=== PATIENT | male | born 1960 | race Caucasian/White ===

== ENCOUNTER 2019-11-27 11:00 | Observation (INO) | payer OTHER, SELFPAY ==
[2019-11-27] VITALS (8 sets, daily range): BP systolic 113–154; BP diastolic 72–102; PULSE 93–125; RESP 15–29; TEMP 36.4–36.6; O2SAT 96–98; BMI 40.4
--- NOTE | 2019-11-27 11:12 | DI.RAD.S_ITS ---
PROCEDURE: XR CHEST 1V INDICATIONS: chest pain TECHNIQUE: One view of the chest was acquired. COMPARISON: None. FINDINGS: Surgical changes and devices: None. Lungs and pleura: Lungs are clear. No pleural effusions or pneumothorax. Mediastinum: The cardiac contours are mildly enlarged. The aorta demonstrates calcification and tortuosity. Bones and chest wall: Age-appropriate bony degenerative changes are seen. No suspicious bony lesions. Overlying soft tissues appear unremarkable. IMPRESSION: Mild cardiomegaly. Clear lungs. Dictated by: Daniel Lundberg M.D. on 11/27/2019 at 10:30 Approved by: Daniel Lundberg M.D. on 11/27/2019 at 10:31
[2019-11-27 11:18] LABS: Add Manual Diff / Slide Review NO; Basophils Absolute Auto 0 /uL (0-100); Basophils Percent Auto 0.7 % (0-2); Eosinophils Absolute Auto 0 /uL (0-450); Eosinophils Percent Auto 0.3 % (2-4); Hematocrit 46.9 % (41-53); Hemoglobin 16.3 g/dL (13.5-17.5); Lymphocytes Absolute Auto 1000 /uL (1100-4500); Lymphocytes Percent Auto 14.6 % (25-40); Mean Corpuscular HGB Conc 34.8 % (30-36); Mean Corpuscular Hemoglobin 30.6 PG (26-34); Mean Corpuscular Volume 87.9 fL (80-100); Monocytes Absolute Auto 300 /uL (0-900); Monocytes Percent Auto 4.3 % (3-14); Neutrophils Absolute Auto 5300 /uL (1500-7000); Neutrophils Percent Auto 80.1 % (50-75); Platelet Count 155 X10^3/uL (150-400); Red Blood Cell Count 5.33 X10^6/uL (4.5-5.9); Red Cell Distribution Width 13.9 % (11.6-14.8); White Blood Cell Count 6.6 X10^3/uL (4.5-11.0)
[2019-11-27 11:25] LABS: INR 1.1 (0.9-1.3); Prothrombin Time 12.4 SECONDS (10.1-12.7)
--- NOTE | 2019-11-27 11:27 | PC.NURSE ---
pt c/o onset of dizziness, like room is about to spin. states had an episode similar to that on [place] but was not seen for hit. pt denies chest pain, or feelings of irregular heart beat. pt has no history of afib. today new onset afib.
[2019-11-27 11:28] LABS: PTT Partial Thromboplastin Tim 34 SECONDS (26.4-36.2)
[2019-11-27 11:31] LABS: Alanine Aminotransferase 25 IU/L (<50); Albumin 4.8 g/dL (3.5-5.0); Albumin Globulin Ratio 1.3 (1.0-2.8); Alkaline Phosphatase 74 U/L (38-126); Aspartate Aminotransferase 31 IU/L (17-59); Blood Urea Nitrogen 24 mg/dL (9-20); Calcium 9.5 mg/dL (8.4-10.2); Carbon Dioxide 25 mmol/L (22-32); Chloride 104 mmol/L (98-107); Creatine Kinase 123 U/L (55-170); Estimated Glomerular Filt Rate > 60.0 mL/min (>60); Globulin 3.6 g/dL (1.7-4.1); Glucose 144 mg/dL (80-110); HEMOLYSIS < 15 (0-50); Lipase 75 U/L (23-300); Potassium 4.5 mmol/L (3.4-5.1); Sodium 139 mmol/L (137-145); Total Protein 8.4 g/dL (6.3-8.2)
[2019-11-27 11:42] LABS: Troponin I < 0.012 ng/mL (0.01-0.034)
[2019-11-27 11:46] LABS: CKMB % Relative Index 1.1 % (1.5-5.0); Creatine Kinase MB 1.33 ng/mL (<2.37)
--- NOTE | 2019-11-27 11:57 | ED_ITS ---
HPI - Chest Pain General Chief Complaint: Chest Pain Stated Complaint: needs his heart checked out Time Seen by Provider: 11/27/19 11:50 Source: patient Mode of arrival: Ambulatory Limitations: no limitations Related Data Home Medications Medication Instructions Recorded Confirmed Respironics Dreamstation CPAP #1 ea 04/10/19 04/10/19 Allergies Allergy/AdvReac Type Severity Reaction Status Date / Time No Known Drug Allergies Allergy Verified 11/27/19 11:10 Patient History Social History marital status: details: [place] lives independently: Yes caregiver/support person: No housing: house Smoking Status: Unknown if ever smoked Smoking Status: Unknown if ever smoked alcohol intake frequency: holidays/special occasions only Substance Use Type: does not use Exam Initial Vital Signs Initial Vital Signs: Vital Signs Temperature 97.5 F L 11/27/19 11:05 Pulse Rate 123 H 11/27/19 11:05 Respiratory Rate 23 11/27/19 11:05 Blood Pressure 128/102 H 11/27/19 11:05 Pulse Oximetry 98 11/27/19 11:05 Course Orders Ordered: ED Orders 11/27/19 11:10 Complete Blood Count AUTO DIFF Stat Comprehensive Metabolic Panel Stat Lipase Stat Partial Thromboplastin Time Stat Prothrombin Time INR Stat Troponin & CK Cardiac Panel Stat 11/27/19 11:12 XR chest 1V Stat EKG-12 Lead Stat Vital Signs Vital signs: Vital Signs - 8 hr 11/27/19 11:05 11/27/19 11:30 Temperature 97.5 F L Pulse Rate 123 H 125 H Respiratory Rate 23 15 Blood Pressure 128/102 H Blood Pressure [Left Arm] 120/85 Pulse Oximetry 98 96 MDM - Chest Pain Lab Data Result diagrams: 11/27/19 11:10 11/27/19 11:10 Labs: Lab Results 11/27/19 11/27/19 11/27/19 Range/Units 11:10 11:10 11:10 WBC 6.6 (4.5-11.0) X10^3/uL RBC 5.33 (4.5-5.9) X10^6/uL Hgb 16.3 (13.5-17.5) g/dL Hct 46.9 (41-53) % MCV 87.9 (80-100) fL MCH 30.6 (26-34) PG MCHC 34.8 (30-36) % RDW 13.9 (11.6-14.8) % Plt Count 155 (150-400) X10^3/uL Neut % (Auto) 80.1 H (50-75) % Lymph % (Auto) 14.6 L (25-40) % [place] % (Auto) 4.3 (3-14) % Eos % (Auto) 0.3 L (2-4) % Baso % (Auto) 0.7 (0-2) % Neut # (Auto) 5300 (5236-9960) /uL Lymph # (Auto) 1000 L (5625-1756) /uL [place] # (Auto) 300 (0-900) /uL Eos # (Auto) 0 (0-450) /uL Baso # (Auto) 0 (0-100) /uL PT 12.4 (10.1-12.7) SECONDS INR 1.1 (0.9-1.3) APTT 34 (26.4-36.2) SECONDS Sodium 139 (137-145) mmol/L Potassium 4.5 (3.4-5.1) mmol/L Chloride 104 (98-107) mmol/L Carbon Dioxide 25 (22-32) mmol/L BUN 24 H (9-20) mg/dL Creatinine 0.80 (0.66-1.25) mg/dL Estimated GFR > 60.0 (>60) mL/min BUN/Creatinine Ratio 30.0 H (6-22) Glucose 144 H (80-110) mg/dL Calcium 9.5 (8.4-10.2) mg/dL Total Bilirubin 1.0 (0.2-1.3) mg/dL AST 31 (17-59) IU/L ALT 25 (<50) IU/L Alkaline Phosphatase 74 (38-126) U/L Total Creatine Kinase 123 (55-170) U/L CK-MB (CK-2) 1.33 (<2.37) ng/mL CK-MB (CK-2) Rel Index 1.1 L (1.5-5.0) % Troponin I < 0.012 (0.01-0.034) ng/mL Total Protein 8.4 H (6.3-8.2) g/dL Albumin 4.8 (3.5-5.0) g/dL Globulin 3.6 (1.7-4.1) g/dL Albumin/Globulin Ratio 1.3 (1.0-2.8) Lipase 75 (23-300) U/L ECG Data Attestation: I personally reviewed and interpreted this ECG as follows: Interpretation: The patient's EKG obtained on November 27 at 11:12 a.m.: 34 reveals atrial fibrillation with a rapid ventricular response ventricular rate is 118. QRS is 111 milliseconds duration. QTC is 421 milliseconds. [place] is normal. The patient has a Q-wave in lead III and V1. T-waves are inverted in lead III and V1. T-waves are flat in V4 V5 and V6. There are no other acute diagnostic ST segment changes. Discharge Plan Departure Prescriptions: No Action (DME) Respironics Dreamstation CPAP Qty: 1 RF: 0
[2019-11-27] MEDS: dilTIAZem 5 MG/ML SDV 10 MG IV (12:13)
[2019-11-27] MEDS: HEPARIN 5,000 UNIT/ML VIAL 5000 UNIT IV (12:15)
--- NOTE | 2019-11-27 13:54 | DI.ECHO.S_ITS ---
[place] +---------+ [facility] +---------+ : : [address] : : : : [id number] : : : : Phone: [phone]+ Echocardiogram Report + + :Name: DEQUAN ROBLERO Study Date: 11/28/2019 Height: 74 in : :[facility] Weight: 315 lb : : Gender: Male BSA: 2.6 m2 : :: 1960 Age: 59 yrs BP: 131/83 mmHg: :Reason For Study: AFIB RVR : : Performed By: Raymond Chau : :Referring: LC SPENCER : + + Interpretation Summary The left ventricle is mildly dilated. The ejection fraction is estimated to be 35-40%. Inferior and apical hyokinesis in the setting of global hypokinesis Right ventricular systolic function is mild to moderately reduced. Both atria are moderately dilated. The right ventricular systolic pressure is estimated to be at least 36 mmHg based on an estimated right atrial pressure of 15 mm Hg. The ascending aorta is mildly enlarged. Procedure: A two-dimensional transthoracic echocardiogram with color flow and Doppler was performed. The study quality was technically difficult. There is no prior echocardiogram noted for this patient. A contrast injection of Definity was performed to improve assessment of LV function. The patient was in atrial fibrillation with rapid ventricular response during the exam with a heart rate exceeding 100 bpm. The patient had a heart rate of 93-136 beats per minute. Left Ventricle: There is normal left ventricular wall thickness. The left ventricle is mildly dilated. The ejection fraction is estimated to be 35-40%. There is moderate global hypokinesis of the left ventricle. Inferior and apical hyokinesis in the setting of global hypokinesis. Right Ventricle: The right ventricle is normal size. Right ventricular systolic function is mild to moderately reduced. Atria: Both atria are moderately dilated. The interatrial septum is intact with no evidence for an atrial septal defect. Mitral Valve: The mitral valve is normal in structure and function. There is trace mitral regurgitation. Aortic Valve: The aortic valve is trileaflet. The aortic valve opens well. There is trace aortic regurgitation. Tricuspid Valve: The tricuspid valve is normal in structure and function. There is trace tricuspid regurgitation. The right ventricular systolic pressure is estimated to be at least 36 mmHg based on an estimated right atrial pressure of 15 mm Hg. Pulmonic Valve: The pulmonic valve is not well visualized. There is trace pulmonic regurgitation. Great Vessels: The aortic root is normal size. The ascending aorta is mildly enlarged. The pulmonary artery is normal size. The IVC is dilated (diameter is greater than 2.1 cm) and it collapses less than 50% with a sniff. This suggests a high right atrial pressure of 15 mm Hg. Pericardium/ Pleura There is no pericardial effusion. There is no pleural effusion. MMode/2D Measurements & Calculations LVIDd: 6.0 cm LVOT diam: 2.5 cm LVIDs: 4.4 cm Ao root diam: 3.2 cm FS: 26.6 % Aortic Jxn: 2.5 cm EPSS: 2.6 cm asc Aorta Diam: 4.0 cm IVSd: 1.0 cm Ao Arch Diam (Prox Trans): 2.9 cm LVPWd: 1.3 cm LV littlejohn. diameter/BSA (cm/m^2): 2.3 LV sys. diameter/BSA (cm/m^2): 1.7 LA dimension: 4.7 cm RA long axis: 6.1 cm LA A2 area: 29.8 cm2 RA area: 27.6 cm2 LA A4 area: 33.0 cm2 RA vol: 106.2 ml LA length (vol): 7.2 cm RA : 40.3 ml/m2 LA vol: 116.1 ml IVC diam: 3.2 cm LA vol index: 44.1 ml/m2 RVD1 (basal): 4.2 cm RVD2 (mid): 4.4 cm Doppler Measurements & Calculations Ao V2 max: 86.9 cm/sec LVOT Max Miah: 70.7 cm/sec Ao V2 mean: 70.0 cm/sec LV V1 max P.0 mmHg Ao max P.1 mmHg LV V1 VTI: 12.5 cm Ao mean P.1 mmHg CAMILA(I,D): 4.8 cm2 Ao V2 VTI: 12.8 cm CAMILA(V,D): 4.0 cm2 sev ratio: 0.98 CAMILA indexed to BSA (cm^2/m^2): 1.8 MV E max miah: 74.7 cm/sec TR max miah: 229.4 cm/sec MV A max miah: 1.4 cm/sec TR max P.1 mmHg MV E/A: 54.6 PA V2 max: 67.5 cm/sec Med Peak E' Miah: 4.3 cm/sec PA V2 mean: 54.3 cm/sec E/E' med: 17.2 PA mean P.2 mmHg Lat Peak E' Miah: 7.5 cm/sec PA pr(Accel): 34.1 mmHg E/E' lat: 9.9 PA Accel Time: 0.09 sec E/e' average: 13.6 MV dec time: 0.09 sec SV(LVOT): 61.0 ml Reading Physician:03:29 PM
--- NOTE | 2019-11-27 14:13 | PC.NURSE ---
PT ARRIVED TO ROOM 229 VIA STRETCHER FROM ED, ABLE TO WALK TO BED UNASSISTED WITH GOOD BALANCE- MONITOR SHOWS AFIB RVR RATE 121 BPM, SLIGHT JVD NOTED AND SLIGHT PERIPHERAL EDEMA- PT DENIES PAIN AND HAS CLEAR LUNGS BILATERALLY- SIGNIFICANT OTHER TO BRING HOME CPAP
--- NOTE | 2019-11-27 15:52 | P.HP_ITS ---
History of Present Illness History of Present Illness Date Patient Seen: 11/27/19 Time Patient Seen: 13:40 Chief complaint: needs his heart checked out Narrative: Duke Magallon is a 59-year-old male with past medical history of ROBIN, who presented after an episode of dizziness this morning. Patient states that this morning he woke and fell profoundly dizzy, with a room spinning sensation lasting for a couple of minutes. This sensation was worse when sitting upright, and then did not improve while lying down. He also has had a posterior, nonradiating, mild headache since this morning. He denies any other symptoms including chest pain, vision changes, slurred speech, weakness, palpitations, nausea, vomiting, diaphoresis, weight gain or weight loss, ortho pnea, or lower extremity edema. He also reports a similar episode at [place], however that episode was followed by intense diaphoresis. He was not evaluated after that. He went to urgent care today and was sent in for evaluation. In the emergency room, he presented in AFib with RVR with a pulse of 125. He was mildly hypertensive, and other vital signs were unremarkable. He was given 10 mg of IV diltiazem with improvement in the rate. He was given IV heparin 5000 units x1 dose. Chest x-ray showed cardiomegaly, without evidence of pulmonary edema. EKG showing AFib with RVR at a rate of 118, there is inferior T-wave inversions and some Q-waves. Otherwise no ST or T changes. Patient was admitted to Medicine under observation status for AFib with RVR, this is a new diagnosis. Patient History Family & Social History Social History: lives independently Yes caregiver/support person No Safety & Behavioral: Feels Safe in Current Yes Environment Been Physically Hurt or No Threatened By a Person Suicidal Ideation Description None Suicide Plan Description No Plan Tobacco & Substance use: Smoking Status Never smoker alcohol intake current alcohol intake frequency a few times a week Substance Use Type does not use Meds Home Medications and Allergies Home Medications Medication Instructions Recorded Confirmed Type Respironics Dreamstation CPAP #1 ea 04/10/19 11/27/19 History Allergies Allergy/AdvReac Type Severity Reaction Status Date / Time No Known Drug Allergies Allergy Verified 11/27/19 11:10 Review of Systems Review of Systems Narrative: All other systems reviewed with the patient and are negative unless otherwise stated. Exam Vital Signs (past 8 hours): - 11/27/19 11:05 11/27/19 11:30 11/27/19 12:13 Temperature 97.5 F L Pulse Rate 123 H 125 H 121 H Respiratory Rate 23 15 Blood Pressure 128/102 H 126/94 H Blood Pressure [Left Arm] 120/85 Pulse Oximetry 98 96 11/27/19 13:04 11/27/19 14:12 11/27/19 15:35 Temperature 97.9 F 97.8 F Pulse Rate 93 H 119 H 120 H Respiratory Rate 18 27 H 17 Blood Pressure 133/93 H 154/94 H Blood Pressure [Left Arm] 122/84 Pulse Oximetry 97 98 97 Oxygen Delivery Method Room Air Oxygen Flow Rate 0 Narrative Exam Narrative: GENERAL APPEARANCE: Well developed, well nourished, in no acute distress. Sitting upright in hospital bed. SKIN: Inspection of the skin reveals no rashes, ulcerations or petechiae. HEENT: Anicteric sclera, moist mucous membranes, EOMI. NECK: Supple and symmetric. There was no thyroid enlargement, and no tenderness, or masses were felt. There is mild JVD. CHEST: Normal AP diameter and normal contour without any kyphoscoliosis. LUNGS: Auscultation of the lungs revealed no wheezes, rhonchi, or rales. CARDIOVASCULAR: There was a regular rate and rhythm without any murmurs, gallops, rubs. Peripheral pulses were 2+ and symmetric. ABDOMEN: Soft and nontender with normal bowel sounds. No ascites was noted. MUSCULOSKELETAL: There was no tenderness or effusions noted. Muscle strength and tone were normal. EXTREMITIES: No cyanosis, clubbing. There is trace lower extremity edema. NEUROLOGIC: Alert and oriented x 3. Normal affect. Strength is +5/5 in the Upper Extremities and Lower Extremities Bilaterally. Sensation to touch was normal. Objective ECG Impression: AFib with RVR, rate 116, inferior Q-waves with flipped T-waves. No evidence of active ischemia. Labs Result Diagrams: 11/27/19 11:10 11/27/19 11:10 Labs: Laboratory Results - last 24 hr 11/27/19 11/27/19 11/27/19 11:10 11:10 11:10 WBC 6.6 RBC 5.33 Hgb 16.3 Hct 46.9 MCV 87.9 MCH 30.6 MCHC 34.8 RDW 13.9 Plt Count 155 Neut % (Auto) 80.1 H Lymph % (Auto) 14.6 L [place] % (Auto) 4.3 Eos % (Auto) 0.3 L Baso % (Auto) 0.7 Neut # (Auto) 5300 Lymph # (Auto) 1000 L [place] # (Auto) 300 Eos # (Auto) 0 Baso # (Auto) 0 PT 12.4 INR 1.1 APTT 34 Sodium 139 Potassium 4.5 Chloride 104 Carbon Dioxide 25 BUN 24 H Creatinine 0.80 Estimated GFR > 60.0 BUN/Creatinine Ratio 30.0 H Glucose 144 H Calcium 9.5 Total Bilirubin 1.0 AST 31 ALT 25 Alkaline Phosphatase 74 Total Creatine Kinase 123 CK-MB (CK-2) 1.33 CK-MB (CK-2) Rel Index 1.1 L Troponin I < 0.012 Total Protein 8.4 H Albumin 4.8 Globulin 3.6 Albumin/Globulin Ratio 1.3 Lipase 75 Nasal Screen MRSA (PCR) 11/27/19 13:20 WBC RBC Hgb Hct MCV MCH MCHC RDW Plt Count Neut % (Auto) Lymph % (Auto) [place] % (Auto) Eos % (Auto) Baso % (Auto) Neut # (Auto) Lymph # (Auto) [place] # (Auto) Eos # (Auto) Baso # (Auto) PT INR APTT Sodium Potassium Chloride Carbon Dioxide BUN Creatinine Estimated GFR BUN/Creatinine Ratio Glucose Calcium Total Bilirubin AST ALT Alkaline Phosphatase Total Creatine Kinase CK-MB (CK-2) CK-MB (CK-2) Rel Index Troponin I Total Protein Albumin Globulin Albumin/Globulin Ratio Lipase Nasal Screen MRSA (PCR) Negative for mrsa Assessment & Plan Assessment & Plan narrative: Duke Magallon is a 59-year-old male with past medical history of ROBIN, who presented after an episode of dizziness this morning and was admitted after EKG showed new diagnosis of AFib with RVR. He is currently admitted under observation status. 1. Atrial fibrillation with rapid ventricular response, new diagnosis, present on admission, active -chest x-ray showing cardiomegaly. Initial troponin negative but pending repeat. He has minimal JVD and trace peripheral edema on exam. Could represent new diagnosis of heart failure, but he has no other symptoms including dyspnea on exertion. It is unclear if his AFib is giving him this dizziness. Given his EKG there is evidence of a prior inferior infarct, however patient denies previous heart history. There is no evidence of active ischemia. This also may be secondary to his chronic ROBIN. -risk stratify with A1c, TSH, lipid panel -will obtain TTE. -continue to monitor electrolytes, initial lab values unremarkable. Continue to follow potassium and magnesium. -depending on echocardiogram results he may need further cardiology consultation. -will diurese with 20 mg of IV Lasix given exam to see if there's improvement. -patient was started on apixaban, CHADS-VASc is technically 0 at this time but given no prior evaluation he is likely to have risk factors which are being evaluated as noted above. He further could have an atrial thrombus given unknown initiation of afib and elected to start AC now. He is s/p 5000 U of IV heparin in the ED. -attempt to rate control with oral metoprolol, he did respond to IV diltiazem, however would ideally have TTE prior to starting this medication as noted above. 2. Dizziness, recurrent, not present on admission -patient is currently asymptomatic. He did not show evidence on exam of BPPV. It is possible this dizziness is due to his AFib with rapid heart rate, however this is unclear. Differential includes vasovagal, however unlikely given story, or potentially carotid sinus syndrome however he did not show evidence of this on exam either. -continue to treat AFib as above, and recheck exam if symptoms return. 3. Obstructive sleep apnea, chronic, present on admission -continue home CPAP therapy 4. Obesity, chronic, BMI 40.4 - pending further evaluation as noted above - consider dietary consultation. - Heart healthy diet. Dispo: Admitted under observation status given his stay is not likely to exceed 2 midnights DVT: on apixaban Scores CHADS-VASc Congestive heart failure: no Hypertension: no Age 75 years or older: no Diabetes mellitus: no Stroke, TIA, or TE: no Vascular disease: no Age 65 to 74 years: no Sex category (female): Male CHADS-VASc Score: 0 Quality VTE Deep Vein Thrombosis/Pulmonary Embolism Present on Admission: No
[2019-11-27] MEDS: APIXABAN 5 MG TABLET PO ×2 (16:35→21:01)
[2019-11-27] MEDS: FUROSEMIDE 20 MG/2 ML VIAL IV (16:35)
[2019-11-27] MEDS: METOPROLOL IR 25 MG TABLET 12.5 MG PO ×2 (16:35→21:02)
[2019-11-27] MEDS: ACETAMINOPHEN 325 MG TABLET 650 MG PO (16:41)
[2019-11-27 17:55] LABS: Troponin I < 0.012 ng/mL (0.01-0.034)
--- NOTE | 2019-11-27 20:48 | ED_ITS ---
HPI - Chest Pain General Chief Complaint: Chest Pain Stated Complaint: needs his heart checked out Time Seen by Provider: 11/27/19 11:50 Source: patient Mode of arrival: Ambulatory Limitations: no limitations History of Present Illness HPI narrative: This is a re-dictation of this patient's chart. I placed a computer button and the previous dictation was he raced. The patient is a 59-year-old male who was seen in a clinic and sent to the emergency department by the nurse practitioner Connor. In the clinic the patient had a heart rate that was running 120-130 and was irregular irregular. The patient was co mplaining of dizziness and balance being off. He denied any chest pain. He had a mild headache. He states that he felt as though he was spinning intermittently. He admits to a heart disease having had a myocardial infarction and stroke in the past. He has had intermittent sweats. He has a mild headache. He has had no nasal drainage sinus congestion sore throat or earache. He denies any tinnitus ear plugging or loss of hearing. He denies any chest pain palpitations or knowledge that he feels his heart racing. He has had no shortness of breath cough or difficulty in breathing. He denies any abdominal pain nausea vomiting diarrhea change in bowel habits melena or hematochezia. And he has had no urinary symptoms. The patient states that he has no primary care physician and is seen in the walk-in clinic. Related Data Home Medications Medication Instructions Recorded Confirmed Respironics Dreamstation CPAP #1 [id number] 04/10/19 11/27/19 Allergies Allergy/AdvReac Type Severity Reaction Status Date / Time No Known Drug Allergies Allergy Verified 11/27/19 11:10 Review of Systems Review of Systems Narrative: All review of systems were negative except for those mentioned in the history of present illness. Patient History Social History marital status: details: lives in [place] household members: significant other lives independently: Yes caregiver/support person: No housing: house Smoking Status: Never smoker alcohol intake: current Smoking Status: Never smoker alcohol intake frequency: a few times a week Substance Use Type: does not use Exam Narrative Exam Narrative: PHYSICAL EXAM: CONSTITUTIONAL: Awake, Alert, Oriented, Coherent, Cooperative in NAD. Does not appear toxic or ill. HEAD: AT/NC EENT: PERRL, FROM of eyes, no discharge, no nystagmus No drainage from the ears, Tympanic membranes intact bilaterally, clear EAC No epistaxis or nasal drainage Oral mucosa is moist and pink, posterior pharynx is without erythema or exudate. NECK: Supple, no obvious JVD, Trachea is midline without stridor, no palpable LN or masses. SPINE: No gross deformity, no palpable tenderness of the cervical, thoracic, lumbar or sacral spine. No CVA tenderness. THORAX: No deformity, retractions, chest wall tenderness, subcutaneous air or crepitice. LUNGS: Clear with symmetrical breath sounds without respiratory distress HEART: The patient's heart tones reveal a variable S1-S2 with an irregular irregular rhythm with tachycardia of bowel without murmur consistent with atrial fibrillation. ABDOMEN: Soft, non-tender, normal bowel sounds without guarding, rebound, rigidity or palpable mass . EXTREMITIES: No edema, cyanosis, deformity or tenderness. SKIN: No rash, bruising, petechiae or purpura. NEURO: Awake, alert, oriented, conversive, cranial nerves II-XII are symmetrical and normal, moves all 4 extremities and is ambulatory Initial Vital Signs Initial Vital Signs: Vital Signs Temperature 97.5 F L 11/27/19 11:05 Pulse Rate 123 H 11/27/19 11:05 Respiratory Rate 23 11/27/19 11:05 Blood Pressure 128/102 H 11/27/19 11:05 Pulse Oximetry 98 11/27/19 11:05 Course Course Course Narrative: The patient was administered 5000 units of heparin IV push followed by 10 mg of Cardizem IV push. A Cardizem bolus wide was utilized to slow the heart rate down less than 100 with the possibility that it may have converted him into normal sinus rhythm. If converted into a normal sinus rhythm he would be at risk of having a stroke for which the patient was administered heparin bolus. The hospitalist was called and the patient was admitted observation status on telemetry. Orders Ordered: Acetaminophen (Tylenol) 650 mg PO Q6HR PRN PRN Reason: Fever/Mild Pain (1-3) Last Admin: 11/27/19 16:41 Dose: 650 mg Documented by: VERNON Apixaban (Eliquis) 5 mg PO BID [facility] Last Admin: 11/28/19 20:35 Dose: 5 mg Documented by: Admin: 11/28/19 09:03 Dose: 5 mg Documented by: Admin: 11/27/19 21:01 Dose: 5 mg Documented by: Admin: 11/27/19 16:35 Dose: 5 mg Documented by: VERNON Diltiazem HCl (Cardizem) 10 mg IV Q2HR PRN PRN Reason: Heart Rate- High Levothyroxine Sodium (Synthroid) 25 mcg PO 0600 [facility] Last Admin: 11/28/19 09:06 Dose: 25 mcg Documented by: ANDREIA Metoprolol Succinate (Toprol Xl) 50 mg PO BID [facility] Last Admin: 11/28/19 20:25 Dose: 50 mg Documented by: RICK Discontinued Medications Diltiazem HCl (Cardizem) 10 mg IV NOW ONE Stop: 11/27/19 12:04 Last Admin: 11/27/19 12:13 Dose: 10 mg Documented by: GUNNAR Furosemide (Lasix) 20 mg IV NOW ONE Stop: 11/27/19 15:56 Last Admin: 11/27/19 16:35 Dose: 20 mg Documented by: VERNON Heparin Sodium (Porcine) (Heparin) 5,000 unit IV NOW ONE Stop: 11/27/19 12:05 Last Admin: 11/27/19 12:15 Dose: 5,000 unit Documented by: GUNNAR Metoprolol Tartrate (Lopressor) 12.5 mg PO BID [facility] Last Admin: 11/27/19 21:02 Dose: 12.5 mg Documented by: Admin: 11/27/19 16:35 Dose: 12.5 mg Documented by: VERNON Metoprolol Tartrate (Lopressor) 25 mg PO BID [facility] Last Admin: 11/28/19 09:04 Dose: 25 mg Documented by: ANDREIA Metoprolol Tartrate (Lopressor) 50 mg PO BID [facility] MDM - Chest Pain Lab Data Attestation: I reviewed the patient's lab results. Result diagrams: 11/28/19 04:30 11/28/19 04:30 Labs: Lab Results 11/27/19 11/27/19 11/27/19 Range/Units 11:10 11:10 11:10 WBC 6.6 (4.5-11.0) X10^3/uL RBC 5.33 (4.5-5.9) X10^6/uL Hgb 16.3 (13.5-17.5) g/dL Hct 46.9 (41-53) % MCV 87.9 (80-100) fL MCH 30.6 (26-34) PG MCHC 34.8 (30-36) % RDW 13.9 (11.6-14.8) % Plt Count 155 (150-400) X10^3/uL Neut % (Auto) 80.1 H (50-75) % Lymph % (Auto) 14.6 L (25-40) % Craig % (Auto) 4.3 (3-14) % Eos % (Auto) 0.3 L (2-4) % Baso % (Auto) 0.7 (0-2) % Neut # (Auto) 5300 (1675-2231) /uL Lymph # (Auto) 1000 L (1550-8399) /uL Craig # (Auto) 300 (0-900) /uL Eos # (Auto) 0 (0-450) /uL Baso # (Auto) 0 (0-100) /uL PT 12.4 (10.1-12.7) SECONDS INR 1.1 (0.9-1.3) APTT 34 (26.4-36.2) SECONDS Sodium 139 (137-145) mmol/L Potassium 4.5 (3.4-5.1) mmol/L Chloride 104 (98-107) mmol/L Carbon Dioxide 25 (22-32) mmol/L BUN 24 H (9-20) mg/dL Creatinine 0.80 (0.66-1.25) mg/dL Estimated GFR > 60.0 (>60) mL/min BUN/Creatinine Ratio 30.0 H (6-22) Glucose 144 H (80-110) mg/dL Calcium 9.5 (8.4-10.2) mg/dL Total Bilirubin 1.0 (0.2-1.3) mg/dL AST 31 (17-59) IU/L ALT 25 (<50) IU/L Alkaline Phosphatase 74 (38-126) U/L Total Creatine Kinase 123 (55-170) U/L CK-MB (CK-2) 1.33 (<2.37) ng/mL CK-MB (CK-2) Rel Index 1.1 L (1.5-5.0) % Troponin I < 0.012 (0.01-0.034) ng/mL Total Protein 8.4 H (6.3-8.2) g/dL Albumin 4.8 (3.5-5.0) g/dL Globulin 3.6 (1.7-4.1) g/dL Albumin/Globulin Ratio 1.3 (1.0-2.8) Lipase 75 (23-300) U/L ECG Data Attestation: I personally reviewed and interpreted this ECG as follows: Interpretation: The patient's EKG obtained on November 27 at 11:12 a.m.: 3 4 revealed atrial fibrillation with a rapid ventricular rate. The patient's ventricular rate was 118. QRS was prolonged at to 111 milliseconds. QTC was normal at 421 milliseconds axis was normal at 27. The patient has a Q-wave in lead II 3 and in V1. T-waves were inverted in lead III and V1. There were no other acute diagnostic ST segment changes. There was no ST indications of ischemia. MDM Narrative Medical decision making narrative: Patient was primarily admitted to the hospital for control of the ventricular rate and consideration of converting his atrial fibrillation. It is unknown how long was in atrial fibrillation. Discharge Plan Departure Patient Disposition: Admitted as Observation Clinical Impression: Atrial fibrillation with RVR, Vertigo Discharge Date/Time: 11/27/19 13:18 Admit Date/Time: 11/27/19 12:46 Admit Provider: Jabari Mcghee
--- NOTE | 2019-11-27 22:30 | PC.NURSE ---
No complaints of chest pain or shortness of breath. HR sustained in 130's while family was in room but came down to 110-120 when at rest. Ambulates to bathroom. Room air. Saline locked IV. Mild headache relieved by Tylenol. CPAP brought from home by , at bedside when patient is ready to go to sleep. Call light within reach.
[2019-11-28] VITALS (8 sets, daily range): BP systolic 107–153; BP diastolic 73–93; PULSE 89–116; RESP 18–31; TEMP 36.1–37.1; O2SAT 96–98
[2019-11-28 04:41] LABS: Add Manual Diff / Slide Review NO; Basophils Absolute Auto 100 /uL (0-100); Basophils Percent Auto 0.8 % (0-2); Eosinophils Absolute Auto 100 /uL (0-450); Eosinophils Percent Auto 2.3 % (2-4); Hematocrit 46.1 % (41-53); Hemoglobin 15.8 g/dL (13.5-17.5); Lymphocytes Absolute Auto 1700 /uL (1100-4500); Lymphocytes Percent Auto 28.3 % (25-40); Mean Corpuscular HGB Conc 34.3 % (30-36); Mean Corpuscular Hemoglobin 30.5 PG (26-34); Mean Corpuscular Volume 88.9 fL (80-100); Monocytes Absolute Auto 300 /uL (0-900); Monocytes Percent Auto 5.5 % (3-14); Neutrophils Absolute Auto 3900 /uL (1500-7000); Neutrophils Percent Auto 63.1 % (50-75); Platelet Count 154 X10^3/uL (150-400); Red Blood Cell Count 5.19 X10^6/uL (4.5-5.9); White Blood Cell Count 6.1 X10^3/uL (4.5-11.0)
[2019-11-28 04:52] LABS: BUN Creatinine Ratio 23.3 (6-22); Blood Urea Nitrogen 21 mg/dL (9-20); Calcium 9.6 mg/dL (8.4-10.2); Carbon Dioxide 31 mmol/L (22-32); Chloride 101 mmol/L (98-107); Cholesterol 200 mg/dL (140-199); Estimated Glomerular Filt Rate > 60.0 mL/min (>60); Glucose 123 mg/dL (80-110); HDL Cholesterol 37 mg/dL (40-60); HEMOLYSIS < 15 (0-50); LDL Cholesterol Calculated 144 mg/dL (<100); Magnesium 2.3 mg/dL (1.6-2.3); Potassium 4.8 mmol/L (3.4-5.1); Sodium 140 mmol/L (137-145); Triglycerides 95 mg/dL (35-150)
[2019-11-28 05:30] LABS: TSH w/ Reflex to FT4 6.01 uIU/mL (0.47-4.68)
[2019-11-28 06:13] LABS: Free T4, Direct Thyroxine 0.76 ng/dL (0.78-2.19)
[2019-11-28] MEDS: APIXABAN 5 MG TABLET PO ×2 (09:03→20:35)
[2019-11-28] MEDS: METOPROLOL IR 25 MG TABLET PO (09:04)
[2019-11-28] MEDS: LEVOTHYROXINE 25 MCG TABLET PO (09:06)
--- NOTE | 2019-11-28 14:22 | PC.NURSE ---
PT ALERT/ORIENTED AND PLEASANT. HE DENIES PAIN- CHEST OR OTHERWISE, AND HAS REMAINED IN AFIB 90-120S PER TELE - BEGAN ON ELIQUIS YESTERDAY AND METOPROLOL 25MG PO BID - TOLERATING DIET WELL, VOIDING WELL AND AWAITING ECHO RESULTS TO DETERMINE DISPOSITION
--- NOTE | 2019-11-28 15:20 | CM.DANOTE ---
DCP Assessment: EMR reviewed: Patient is a 59 yr old male who was admitted to [facility] for dizziness and cardiac work up. PCP is Dr. Garcia at [facility]. CM/RN met with patient at the bedside and explained role. Patient was alert and oriented x3 during CM/RN visit. Patient is I with all ADL's and drives at [place] line. Patient currently lives in a split level home with his significant other Linn Sol. Patient stated he was feeling better and not currently having dizzy spells. In AM rounds Dr. Mcghee stated patient might D/C today pending ECHO results. I: [employer] PPO and Self pay. Plan: D/C home with significant other Linn when medically stable. Pending ECHO results. No identified D/C planning needs noted at this time. CM department will follow to assist with any new needs that may arise. Kika Ewing RN Discharge Planning/Care Management CM Discharge Assessment Start: 11/28/19 15:19 Freq: Status: Active Protocol: Document 11/28/19 15:19 HS (Rec: 11/28/19 15:20 HS [id number]) Discharge Planning Assessment Assigned Academic Coordinator Kika Ewing RN DPOA/Assigned Designee Name Linn Amaro other Contact Information [phone] Advance Directives? No Advance Directives on File No History Provided By Patient,Medical Record Has Patient been admitted in last 30 No days? Prior Living Arrangements House Household Members significant other Comment linn Sol Type of transporation used prior to Drives own vehicle admit Independent with ADL's Yes Is patient alert and oriented? Yes Caregiver for Another No Discharge Plan Home Referrals Initiated None needed Whiteboard Updated in Patient Room with Yes name and ext. # of Academic Coordinator Review Status In Process Next Review Type Continued Stay Review
--- NOTE | 2019-11-28 19:05 | PM.PN.1 ---
Subjective Subjective Date Patient Seen: 11/28/19 Time Patient Seen: 19:05 Interval history: Duke Magallon is a 59-year-old male with past medical history of ROBIN, who presented after an episode of dizziness. He was found to be in AFib with RVR and he is seen for follow-up today. The patient continues to deny palpitations, shortness of breath, chest pain. 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 He had an echocardiogram which showed an EF of 35-40% with inferior and apical hypokinesis. Cardiology was consulted after the echocardiogram findings, and they recommended additional rate control with Toprol XL twice daily. They did recommend that he should have a stress test but this does not necessarily need to be done as inpatient. If the patient is still here for rate control as of Sunday they did recommend a stress test, however if discharged over the weekend he should follow-up with a primary care provider for an outpatient stress test. Exam Vital Signs (past 8 hours): - 11/28/19 12:36 11/28/19 16:11 Temperature 97.5 F L 97.6 F Pulse Rate 111 H 105 H Respiratory Rate 21 18 Blood Pressure 111/73 115/78 Pulse Oximetry 97 98 Oxygen Delivery Method Room Air Oxygen Flow Rate 0 Narrative Exam Narrative: GENERAL APPEARANCE: Well developed, well nourished, in no acute distress. Sitting upright in hospital bed. SKIN: Inspection of the skin reveals no rashes, ulcerations or petechiae. HEENT: Anicteric sclera, moist mucous membranes, EOMI. NECK: Supple and symmetric. There was no thyroid enlargement, and no tenderness, or masses were felt. There is mild JVD. CHEST: Normal AP diameter and normal contour without any kyphoscoliosis. LUNGS: Auscultation of the lungs revealed no wheezes, rhonchi, or rales. CARDIOVASCULAR: There was a regular rate and rhythm without any murmurs, gallops, rubs. Peripheral pulses were 2+ and symmetric. ABDOMEN: Soft and nontender with normal bowel sounds. No ascites was noted. MUSCULOSKELETAL: There was no tenderness or effusions noted. Muscle strength and tone were normal. EXTREMITIES: No cyanosis, clubbing. There is trace lower extremity edema. NEUROLOGIC: Alert and oriented x 3. Normal affect. Strength is +5/5 in the Upper Extremities and Lower Extremities Bilaterally. Sensation to touch was normal. Objective Labs Result Diagrams: 11/28/19 04:30 11/28/19 04:30 Labs: Laboratory Results - last 24 hr 11/28/19 11/28/19 11/28/19 04:30 04:30 04:30 WBC 6.1 RBC 5.19 Hgb 15.8 Hct 46.1 MCV 88.9 MCH 30.5 MCHC 34.3 RDW 14.0 Plt Count 154 Neut % (Auto) 63.1 Lymph % (Auto) 28.3 [place] % (Auto) 5.5 Eos % (Auto) 2.3 Baso % (Auto) 0.8 Neut # (Auto) 3900 Lymph # (Auto) 1700 [place] # (Auto) 300 Eos # (Auto) 100 Baso # (Auto) 100 Sodium 140 Potassium 4.8 Chloride 101 Carbon Dioxide 31 BUN 21 H Creatinine 0.90 Estimated GFR > 60.0 BUN/Creatinine Ratio 23.3 H Glucose 123 H Hemoglobin A1c 6.0 Calcium 9.6 Magnesium 2.3 Triglycerides 95 Cholesterol 200 H LDL Cholesterol, Calc 144 H HDL Cholesterol 37 L TSH Free T4 11/28/19 04:30 WBC RBC Hgb Hct MCV MCH MCHC RDW Plt Count Neut % (Auto) Lymph % (Auto) [place] % (Auto) Eos % (Auto) Baso % (Auto) Neut # (Auto) Lymph # (Auto) [place] # (Auto) Eos # (Auto) Baso # (Auto) Sodium Potassium Chloride Carbon Dioxide BUN Creatinine Estimated GFR BUN/Creatinine Ratio Glucose Hemoglobin A1c Calcium Magnesium Triglycerides Cholesterol LDL Cholesterol, Calc HDL Cholesterol TSH 6.01 H Free T4 0.76 L Assessment & Plan Assessment & Plan narrative: Duke Magallon is a 59-year-old male with past medical history of ROBIN, who presented after an episode of dizziness this morning and was admitted after EKG showed new diagnosis of AFib with RVR. He is currently admitted under observation status. 1. Atrial fibrillation with rapid ventricular response, new diagnosis, present on admission, active - chest x-ray showing cardiomegaly. Initial troponin negative but pending repeat. He has minimal JVD and trace peripheral edema on exam. Could represent new diagnosis of heart failure, but he has no other symptoms including dyspnea on exertion. It is unclear if his AFib is giving him this dizziness. Given his EKG there is evidence of a prior inferior infarct, however patient denies previous heart history. There is no evidence of active ischemia. This also may be secondary to his chronic ROBIN, and also possibly but unlikely hypothyroidism after TSH was elevated and had a low free T4. -A1c is 6.0, TSH 6.01 with free T4 just barely low at 0.76. LDL with total cholesterol 200, LDL 144. ASCVD risk is calculated at 10.3%. Given hypothyroidism statin medication was not initiated, and this should be re-evaluated as an outpatient. -echocardiogram showed an ejection fraction of 35-40% with inferior and apical hypokinesis. -cardiology was consulted who recommended transition to Toprol XL 50 mg twice daily for better rate control. He should further have an outpatient stress test. -continue to monitor electrolytes, initial lab values unremarkable. Continue to follow potassium and magnesium. -patient was given 20 mg of IV Lasix given initial presentation, afterwards he appeared euvolemic and does not required additional Lasix at this time. -patient was started on apixaban -attempt to rate control with oral metoprolol, he did respond to IV diltiazem, however would ideally have TTE prior to starting this medication as noted above. 2. Dizziness, recurrent, not present on admission -patient is currently asymptomatic. He did not show evidence on exam of BPPV. It is possible this dizziness is due to his AFib with rapid heart rate, however this is unclear. Differential includes vasovagal, however unlikely given story, or potentially carotid sinus syndrome however he did not show evidence of this on exam either. -continue to treat AFib as above, and recheck exam if symptoms return. 3. Obstructive sleep apnea, chronic, present on admission -continue home CPAP therapy 4. Obesity, chronic, BMI 40.4 - consider dietary consultation. - Heart healthy diet. 5. Hypothyroidism, new diagnosis -TSH mildly elevated at 6, free T4 0.76. - I have ordered for low-dose levothyroxine given the lab tests and cardiac findings. - he should follow-up for repeat evaluation as an outpatient 6. Heart failure with reduced ejection fraction, new diagnosis, chronicity unknown -new EF of 35-40% with inferior and apical hypokinesis. Differential includes tachyarrhythmia induced cardiomyopathy, or ischemic cardiomyopathy based on EKG with what appears to be an old inferior MO. -outpatient stress testing recommended by Cardiology. He will likely need a cardiology referral from his new primary care provider. -will maximize metoprolol prior to initiation of an WILLIAM-inhibitor. Given borderline blood pressures at this time he will likely need WILLIAM-inhibitor added as an outpatient. Dispo: Admitted under observation status given his stay is not likely to exceed 2 midnights, patient can discharge home per Cardiology once his rate is better controlled. He will need outpatient stress testing. The patient plans to follow-up with the clinic that saw him that sent him in as his new primary care provider. DVT: on apixaban Quality VTE Deep Vein Thrombosis/Pulmonary Embolism Present on Admission: No
[2019-11-28] MEDS: METOPROLOL ER 50 MG TABLET PO (20:25)
[2019-11-29 00:18] VITALS: BP 108/71; PULSE 60; RESP 18; TEMP 36.1; O2SAT 95
[2019-11-29 00:28] VITALS: O2SAT 96
[2019-11-29 04:30] VITALS: BP 112/78; PULSE 63; RESP 18; TEMP 35.8; O2SAT 97
[2019-11-29 05:15] LABS: Add Manual Diff / Slide Review NO; Basophils Absolute Auto 100 /uL (0-100); Basophils Percent Auto 0.7 % (0-2); Eosinophils Absolute Auto 100 /uL (0-450); Eosinophils Percent Auto 1.9 % (2-4); Hemoglobin 15.9 g/dL (13.5-17.5); Lymphocytes Absolute Auto 1900 /uL (1100-4500); Lymphocytes Percent Auto 26.9 % (25-40); Mean Corpuscular HGB Conc 34.5 % (30-36); Mean Corpuscular Hemoglobin 30.4 PG (26-34); Mean Corpuscular Volume 88.2 fL (80-100); Monocytes Absolute Auto 500 /uL (0-900); Monocytes Percent Auto 6.7 % (3-14); Neutrophils Absolute Auto 4600 /uL (1500-7000); Neutrophils Percent Auto 63.8 % (50-75); Platelet Count 156 X10^3/uL (150-400); Red Blood Cell Count 5.22 X10^6/uL (4.5-5.9); Red Cell Distribution Width 14.1 % (11.6-14.8); White Blood Cell Count 7.2 X10^3/uL (4.5-11.0)
[2019-11-29 05:22] LABS: Blood Urea Nitrogen 22 mg/dL (9-20); Calcium 9.3 mg/dL (8.4-10.2); Carbon Dioxide 29 mmol/L (22-32); Chloride 102 mmol/L (98-107); Estimated Glomerular Filt Rate > 60.0 mL/min (>60); Glucose 114 mg/dL (80-110); HEMOLYSIS < 15 (0-50); Magnesium 2.1 mg/dL (1.6-2.3); Potassium 4.4 mmol/L (3.4-5.1); Sodium 139 mmol/L (137-145)
[2019-11-29] MEDS: LEVOTHYROXINE 25 MCG TABLET PO (06:40)
[2019-11-29 08:00] VITALS: BP 125/82; PULSE 54; RESP 20; TEMP 36.6; O2SAT 94
[2019-11-29 08:56] VITALS: PULSE 74
[2019-11-29] MEDS: METOPROLOL ER 50 MG TABLET PO (08:56)
[2019-11-29] MEDS: APIXABAN 5 MG TABLET PO (08:57)
--- NOTE | 2019-11-29 08:59 | PC.NURSE ---
Addendum entered by Hayley Ugarte R.N. 11/29/19 11:49: Discharge teaching reviewed with and family. All questions answered, reviewed follow up appt and stress test needs this week. Pt has not further questions. Original Note: Am shift Pt is A/o x4, pleasant, denies CP or SOB Tele shows rate improved, 70-80 at rest. Continue with XL Metoprolol and elequis. Pt education provided.
--- NOTE | 2019-11-29 10:51 | P.DS_ITS ---
History of Present Illness History of Present Illness Chief complaint: needs his heart checked out Narrative: Duke Magallon is a 59-year-old male with past medical history of ROBIN, who presented after an episode of dizziness this morning. Patient states that this morning he woke and fell profoundly dizzy, with a room spinning sensation lasting for a couple of minutes. This sensation was worse when sitting upright, and then did not improve while lying down. He also has had a posterior, nonradiating, mild headache since this morning. He denies any other symptoms including chest pain, vision changes, slurred speech, weakness, palpitations, nausea, vomiting, diaphoresis, weight gain or weight loss, orthop petrona, or lower extremity edema. He also reports a similar episode at [place], however that episode was followed by intense diaphoresis. He was not evaluated after that. He went to urgent care today and was sent in for evaluation. In the emergency room, he presented in AFib with RVR with a pulse of 125. He was mildly hypertensive, and other vital signs were unremarkable. He was given 10 mg of IV diltiazem with improvement in the rate. He was given IV heparin 5000 units x1 dose. Chest x-ray showed cardiomegaly, without evidence of pulmonary edema. EKG showing AFib with RVR at a rate of 118, there is inferior T-wave inversions and some Q-waves. Otherwise no ST or T changes. Patient was admitted to Medicine under observation status for AFib with RVR, this is a new diagnosis. Discharge Providers Provider Date of admission: 11/27/19 12:46 Discharge Date: 11/29/19 Discharge provider: Beau Treadwell MD Summary Hospital Course Discharge Diagnosis: 1. Acute atrial fibrillation with RVR 2. Systolic dysfunction and left ventricle wall motion abnormalities on echo 3. Hyperlipidemia 4. Hypothyroidism 5. Obstructive sleep apnea, on CPAP 6. Severe obesity Transthoracic echo 11/27/2019: The left ventricle is mildly dilated. The ejection fraction is estimated to be 35-40%. Inferior and apical hyokinesis in the setting of global hypokinesis Right ventricular systolic function is mild to moderately reduced. Both atria are moderately dilated. The right ventricular systolic pressure is estimated to be at least 36 mmHg based on an estimated right atrial pressure of 15 mm Hg. The ascending aorta is mildly enlarged. Hospital Course: Patient was admitted with complaints of dizziness which turned down due to rapid atrial fibrillation. Symptoms have resolved. He was started on metoprolol and Eliquis. At time of discharge he remains in atrial fibrillation which is a new diagnosis for him. He has obstructive sleep apnea and uses CPAP. Echo showed LV global hypokinesis with inferior and apical hypokinesis. Patient did not exhibit symptoms of clinical heart failure. Troponin was normal as well. Case was discussed with Cardiology by phone and they recommended outpatient stress test. Patient's cholesterol total 200, LDL 144, HDL 37, triglycerides 95. He was started on atorvastatin 20 mg q.p.m.. Patient with mild hypothyroidism, TSH 6.01 with low free T4 of 0.76. He was started on low-dose replacement with levothyroxine 25 mcg q.d.. Patient does not have PCP but planning to establish care with Dr. Benja Garcia at [facility]. He will have Dr. Garcia schedule him for outpatient pharmacological stress test. Consider initiating WILLIAM-inhibitor therapy for LV systolic dysfunction. Status at Discharge Cognitive/behavioral status at discharge: oriented Functional status at discharge: independent ambulation Overall status at discharge: patient is back to baseline Time Spent with Patient Time spent: Greater than 30 minutes Exam Vital Signs (past 8 hours): - 11/29/19 04:30 11/29/19 08:00 11/29/19 08:56 Temperature 96.5 F L 97.8 F Pulse Rate 63 54 L 74 Respiratory Rate 18 20 Blood Pressure 112/78 125/82 Pulse Oximetry 97 94 Oxygen Delivery Method Room Air Oxygen Flow Rate 0 Objective Labs Result Diagrams: 11/29/19 04:49 11/29/19 04:49 Labs: Laboratory Results - last 24 hr 11/29/19 11/29/19 04:49 04:49 WBC 7.2 RBC 5.22 Hgb 15.9 Hct 46.0 MCV 88.2 MCH 30.4 MCHC 34.5 RDW 14.1 Plt Count 156 Neut % (Auto) 63.8 Lymph % (Auto) 26.9 Saunders % (Auto) 6.7 Eos % (Auto) 1.9 L Baso % (Auto) 0.7 Neut # (Auto) 4600 Lymph # (Auto) 1900 Saunders # (Auto) 500 Eos # (Auto) 100 Baso # (Auto) 100 Sodium 139 Potassium 4.4 Chloride 102 Carbon Dioxide 29 BUN 22 H Creatinine 1.00 Estimated GFR > 60.0 BUN/Creatinine Ratio 22.0 Glucose 114 H Calcium 9.3 Magnesium 2.1 Discharge Plan Discharge Plan Patient Disposition: Home Discharge orders & Medications Prescriptions: New Eliquis 5 mg Tablet 5 mg PO BID Qty: 60 RF: 0 levothyroxine 25 mcg tablet 25 mcg PO DAILY Qty: 30 RF: 0 atorvastatin 20 mg tablet 20 mg PO QPM Qty: 30 RF: 0 metoprolol succinate 50 mg tablet extended release 24 hr 50 mg PO BID Qty: 60 RF: 0 No Action (DME) Respironics Dreamstation CPAP Qty: 1 RF: 0 Follow up/Referrals: Benja Garcia [Other] (Schedule new patient appointment with Dr Benja Garcia at [facility] to be seen next week.) Discharge Health Status Care Plan Goals: You were admitted with atrial fibrillation with rapid heart rate. ECHO was done. Take medications as directed. You need outpatient chemical stress test to evaluate for potential coronary blockages. You were also started on medications for hypothyroidism and elevated cholesterol. You should work on diet to achieve a more healthy weight. Diet/Activity/Treatments Diet: Diet as Tolerated Discharge Data Attending Provider: Jabari Mcghee Admit Date/Time: 11/27/19 12:46 Quality VTE Deep Vein Thrombosis/Pulmonary Embolism Present on Admission: No
== END 2019-11-29 13:58 | disposition home or self-care (01) ==
LOC: ED 12:23 → AC 12:47 → ICU 13:25
PROVIDERS: Admitting Provider Internal Medicine; Emergency Provider Emergency Medicine; Visit Provider Internal Medicine
DX: I48.91 Unspecified atrial fibrillation (principal); R07.9 Chest pain, unspecified; Z86.73 Personal history of transient ischemic attack (TIA), and cerebral infarction without residual deficits; I25.2 Old myocardial infarction; G47.33 Obstructive sleep apnea (adult) (pediatric); R42 Dizziness and giddiness; E66.09 Other obesity due to excess calories; Z68.41 Body mass index [BMI] 40.0-44.9, adult; E78.5 Hyperlipidemia, unspecified
CPT/HCPCS: 36415; 71045; 80048; 80053; 80061; 82550; 82553; 83036; 83690; 83735; 84439; 84443; 84484; 85025; 85610; 85730; 87797; 93005; 93010; 93306; 96374; 96375; 99284; 99285; G0378; J1644; J1940; Q9957

== ENCOUNTER → 2019-12-03 14:54 | Outpatient (CLI) | payer OTHER, SELFPAY ==
[2019-11-27 13:26] VITALS: BMI 40.4
== END ==
PROVIDERS: PCP Internal Medicine; Visit Provider Internal Medicine
DX: R73.9 Hyperglycemia, unspecified (principal)
CPT/HCPCS: 36415; 83036

== ENCOUNTER → 2019-12-29 07:02 | Outpatient (CLI) | payer OTHER, SELFPAY ==
[2019-11-27 13:26] VITALS: BMI 40.4
--- NOTE | 2019-12-29 | DI.NM.S_ITS ---
PROCEDURE: NM RAAD PERF SPECT R&S PHARM Rest and pharmacological stress myocardial perfusion SPECT with gated imaging and ejection fraction RADIOPHARMACEUTICAL: 24.9 mCi Tc-99m tetrafosmin IV at rest and 24.0 mCi Tc-99m tetrafosmin IV at peak effect of pharmacological stress. [id number] was performed. INDICATIONS: Chronic systolic (congestive) heart failure TECHNIQUE: Radiopharmaceutical was injected at peak stress test, and also at rest. SPECT images were obtained. SPECT myocardial perfusion images were displayed in short axis, horizontal long axis, and vertical long axis views. Gated images were reviewed using The Muse software. COMPARISON: None. CARDIAC STRESS: A pharmacologic stress test was performed under the supervision of an attending staff, using an infusion of lexiscan 0.4mg IV X1. Hemodynamic data: There is normal blood pressure and heart rate response to pharmacologic stress. Symptoms: The patient denied anginal chest pain. Aminophylline: none EKG: No diagnostic changes of ischemia. FINDINGS: Raw data: There is good myocardial uptake of radiotracer. No significant motion artifacts. Xizf-dx-wnirb ratio is 0.27 (normal is less than 0.38 for tetrafosmin tracer). Left ventricle function: Gated images demonstrate global hypokinesis that is worse in the septum and distal anterior wall. No transient ischemic dilation; TID is 1.09 (normal less than 1.3). Left ventricle resting end diastolic volume is 169 mL. Left ventricle stress ejection fraction is 35%; normal range is above 45%. Myocardial perfusion: There is a severe fixed defect of the entire apex extending to the distal inferior wall, suggesting prior LAD infarction with no significant ischemia. SSS 6, SRS 5.. IMPRESSION: Abnormal pharm nuclear stress test consistent with prior infarction. No ischemia. 1) There is asevere fixed defect of the entire apex extending to the distal inferior wall, suggesting prior LAD infarction with no significant ischemia. SSS 6, SRS 5.. 2) Mildly enlarged left ventricle with moderately reduced systolic function (EF post stress 35%). There is global hypokinesis that is worse in the septum and distal anterior wall. 3) No ECG evidence of ischemia. Atrial fibrillation present during the entire study. 4) No angina during the study. 5) No prior nuclear stress test available for comparison. Dictated by: Betzaida Mora MD on 12/30/2019 at 15:47 Approved by: Betzaida Mora MD on 12/30/2019 at 15:51
--- NOTE | 2019-12-29 08:23 | PM.TREADMILL ---
Cardiac Stress Test Report Referral & Results Date Patient Seen: 12/29/19 Time Patient Seen: 08:23 Requesting provider: Benja Garcia Indication: chronic systolic congestive heart failure Rest ECG: atrial fibrillation Procedure Note: After Lexiscan injection no significant dyspnea, no chest discomfort Baseline ECG atrial fibrillation No significant ST changes on ECG after Lexiscan injection; no ectopy No reversal agent needed Impression: normal lexiscan stress test. mibi images pending Please note: Actual ECG tracings can be found in the PACS system.
== END ==
PROVIDERS: PCP Internal Medicine; Referring Provider Internal Medicine; Visit Provider Internal Medicine
DX: R94.39 Abnormal result of other cardiovascular function study (principal); I50.22 Chronic systolic (congestive) heart failure; I48.91 Unspecified atrial fibrillation
CPT/HCPCS: 78452; 93017; A9502; J2785

== ENCOUNTER → 2020-03-16 07:10 | Outpatient (CLI) | payer OTHER, SELFPAY ==
[2019-11-27 13:26] VITALS: BMI 40.4
[2020-03-16 08:45] LABS: Hemoglobin A1C% w Est Avg Glu 6.3 % (4.0-6.0)
[2020-03-16 08:53] LABS: Alanine Aminotransferase 21 IU/L (<50); Albumin 4.3 g/dL (3.5-5.0); Albumin Globulin Ratio 1.3 (1.0-2.8); Alkaline Phosphatase 68 U/L (38-126); Aspartate Aminotransferase 24 IU/L (17-59); BUN Creatinine Ratio 22.7 (6-22); Bilirubin Total 0.7 mg/dL (0.2-1.3); Blood Urea Nitrogen 20 mg/dL (9-20); Calcium 9.6 mg/dL (8.4-10.2); Carbon Dioxide 27 mmol/L (22-32); Chloride 104 mmol/L (98-107); Cholesterol 115 mg/dL (140-199); Estimated Glomerular Filt Rate > 60.0 mL/min (>60); Globulin 3.2 g/dL (1.7-4.1); Glucose 122 mg/dL (80-110); HDL Cholesterol 32 mg/dL (40-60); HEMOLYSIS < 15 (0-50); LDL Cholesterol Calculated 65 mg/dL (<100); Potassium 4.6 mmol/L (3.4-5.1); Sodium 141 mmol/L (137-145); Total Protein 7.5 g/dL (6.3-8.2); Triglycerides 91 mg/dL (35-150)
[2020-03-16 09:04] LABS: Free T4, Direct Thyroxine 0.83 ng/dL (0.78-2.19)
[2020-03-16 09:18] LABS: Thyroid Stimulating Hormone 3.96 uIU/mL (0.47-4.68)
[2020-03-16 23:06] LABS: Triiodothyronine T3 Total 102 ng/dL (71-180)
== END ==
PROVIDERS: PCP Internal Medicine; Referring Provider Internal Medicine; Visit Provider Internal Medicine
DX: I50.22 Chronic systolic (congestive) heart failure (principal); E03.9 Hypothyroidism, unspecified; R73.9 Hyperglycemia, unspecified; E78.5 Hyperlipidemia, unspecified
CPT/HCPCS: 36415; 80053; 80061; 83036; 84439; 84443; 84480

== ENCOUNTER → 2020-06-03 07:43 | Outpatient (CLI) | payer OTHER, SELFPAY ==
[2019-11-27 13:26] VITALS: BMI 40.4
--- NOTE | 2020-06-03 | DI.ECHO.S_ITS ---
[place] [facility]---------+ [facility] +---------+ : : [address] : : : : [id number] : : : : Phone: [phone]---------+ Echocardiogram Report + + :Name: DEQUAN ROBLERO Study Date: 06/03/2020 Height: 74 in : :[facility] Weight: 293 lb : : Gender: Male BSA: 2.6 m2 : :: 1960 Age: 60 yrs BP: 148/64 mmHg: :Reason For Study: CORONARY ANGTIOPLASTY IMPLANT AND GRAFT : :Ordering Physician: DANN, : :CHARMAINE STAPLES Performed By: Africa Otero : :Referring: CHARMAINE QUIGLEY : + + Interpretation Summary Dr. Gray to read. The ejection fraction is estimated to be 40-45%. Left ventricular systolic function has mildly improved compared to the previous exam. Inferior and apical hypokinesis There is no significant valvular heart disease. Procedure: A two-dimensional transthoracic echocardiogram with color flow and Doppler was performed. The study quality was technically difficult. A contrast injection of Definity was performed to improve assessment of LV function. The patient was in atrial fibrillation with heart rates between 100- 130 bpm during the exam. Left Ventricle: The left ventricle is normal in size. There is mild concentric left ventricular hypertrophy. The ejection fraction is estimated to be 40-45%. Left ventricular systolic function has mildly improved compared to the previous exam. Inferior and apical hypokinesis. Diastolic function could not be accurately assessed due to atrial fibrillation. Right Ventricle: The right ventricle is mildly dilated. Right ventricular systolic function is at the lower limits of normal. Atria: The left atrium is mildly dilated. Right atrial size is normal. There is no Doppler evidence for an interatrial shunt. Mitral Valve: The mitral valve is normal in structure and function. There is trace mitral regurgitation. Aortic Valve: The aortic valve is trileaflet. The aortic valve opens well. There is no aortic valve stenosis. No aortic regurgitation is present. Tricuspid Valve: The tricuspid valve is normal in structure and function. Pulmonary artery pressures cannot be estimated because of the lack of a measurable TR jet velocity but the IVC suggests a CVP of around 8 mmHg. There is trace tricuspid regurgitation. Pulmonic Valve: The pulmonic valve is not well visualized. The pulmonic valve is not well seen, but is grossly normal. There is no pulmonic valvular regurgitation. Great Vessels: The aortic root is normal size. The ascending aorta is mildly enlarged. The IVC is dilated (diameter is greater than 2.1 cm) yet it collapses greater than 50% with a sniff. This suggests a right atrial pressure of 8 mm Hg. Pericardium/ Pleura There is no pericardial effusion. There is no pleural effusion. MMode/2D Measurements & Calculations LVIDd: 5.5 cm LVOT diam: 2.4 cm LVIDs: 4.1 cm Ao root diam: 3.2 cm FS: 26.1 % asc Aorta Diam: 3.7 cm EPSS: 1.4 cm Ao Arch Diam (Prox Trans): 3.0 cm IVSd: 1.1 cm LVPWd: 1.2 cm LV littlejohn. diameter/BSA (cm/m^2): 2.2 LV sys. diameter/BSA (cm/m^2): 1.6 LA A2 area: 26.3 cm2 RA long axis: 5.9 cm LA A4 area: 25.4 cm2 RA area: 21.1 cm2 LA length (vol): 6.4 cm RA vol: 64.4 ml LA vol: 88.8 ml RA : 25.2 ml/m2 LA vol index: 34.7 ml/m2 IVC diam: 2.1 cm RVD1 (basal): 4.2 cm TAPSE: 1.7 cm Doppler Measurements & Calculations Ao V2 max: 114.9 cm/sec LVOT Max Miah: 94.2 cm/sec Ao V2 mean: 78.4 cm/sec LV V1 max P.5 mmHg Ao max P.3 mmHg LV V1 VTI: 16.7 cm Ao mean P.8 mmHg CAMILA(I,D): 3.7 cm2 Ao V2 VTI: 20.0 cm CAMILA(V,D): 3.6 cm2 sev ratio: 0.84 CAMILA indexed to BSA (cm^2/m^2): 1.4 MV E max miah: 100.6 cm/sec PA V2 max: 81.2 cm/sec MV A max miah: 0.98 cm/sec PA V2 mean: 52.7 cm/sec MV E/A: 103.1 PA mean P.3 mmHg Med Peak E' Miah: 10.5 cm/sec PA pr(Accel): 30.2 mmHg E/E' med: 9.6 Lat Peak E' Miah: 14.9 cm/sec E/E' lat: 6.8 E/e' average: 8.2 MV dec time: 0.14 sec SV(LVOT): 73.2 ml Reading Physician:02:16 PM
== END ==
PROVIDERS: PCP Internal Medicine; Referring Provider Registered Nurse; Visit Provider Registered Nurse
DX: I48.91 Unspecified atrial fibrillation (principal); I25.5 Ischemic cardiomyopathy; I77.89 Other specified disorders of arteries and arterioles; Z95.5 Presence of coronary angioplasty implant and graft
CPT/HCPCS: 93306

== ENCOUNTER → 2021-05-13 17:48 | Outpatient (CLI) | payer OTHER, SELFPAY ==
[2019-11-27 13:26] VITALS: BMI 40.4
[2021-05-13 21:01] LABS: Thyroid Stimulating Hormone 4.16 uIU/mL (0.47-4.68)
== END ==
PROVIDERS: PCP Physician Assistant; Referring Provider Internal Medicine Cardiovascular Disease; Visit Provider Internal Medicine Cardiovascular Disease
DX: I48.91 Unspecified atrial fibrillation (principal)
CPT/HCPCS: 36415; 84443

== ENCOUNTER → 2021-09-20 13:22 | Outpatient (CLI) | payer OTHER, SELFPAY ==
[2019-11-27 13:26] VITALS: BMI 40.4
[2021-09-20 14:16] LABS: BUN Creatinine Ratio 29.7 (6-22); Blood Urea Nitrogen 35 mg/dL (9-20); Calcium 10.4 mg/dL (8.4-10.2); Carbon Dioxide 29 mmol/L (22-32); Chloride 99 mmol/L (98-107); Estimated Glomerular Filt Rate > 60.0 mL/min (>60); Glucose 104 mg/dL (80-110); HEMOLYSIS < 15 (0-50); Potassium 5.1 mmol/L (3.4-5.1); Sodium 135 mmol/L (137-145)
== END ==
PROVIDERS: PCP Physician Assistant; Referring Provider Internal Medicine Cardiovascular Disease; Visit Provider Internal Medicine Cardiovascular Disease
DX: I25.10 Atherosclerotic heart disease of native coronary artery without angina pectoris (principal); I48.19 Other persistent atrial fibrillation; R06.00 Dyspnea, unspecified
CPT/HCPCS: 36415; 80048

== ENCOUNTER → 2021-10-03 11:23 | Outpatient (CLI) | payer OTHER, SELFPAY ==
[2019-11-27 13:26] VITALS: BMI 40.4
[2021-10-03 13:29] LABS: BUN Creatinine Ratio 26.4 (6-22); Blood Urea Nitrogen 28 mg/dL (9-20); Calcium 9.6 mg/dL (8.4-10.2); Carbon Dioxide 29 mmol/L (22-32); Chloride 100 mmol/L (98-107); Estimated Glomerular Filt Rate > 60.0 mL/min (>60); Glucose 96 mg/dL (80-110); HEMOLYSIS < 15 (0-50); Sodium 135 mmol/L (137-145)
== END ==
PROVIDERS: PCP Physician Assistant; Referring Provider Internal Medicine Cardiovascular Disease; Visit Provider Internal Medicine Cardiovascular Disease
DX: I48.19 Other persistent atrial fibrillation (principal); I25.10 Atherosclerotic heart disease of native coronary artery without angina pectoris; R06.00 Dyspnea, unspecified
CPT/HCPCS: 36415; 80048

== ENCOUNTER → 2021-11-03 07:57 | Outpatient (CLI) | payer OTHER, SELFPAY ==
[2019-11-27 13:26] VITALS: BMI 40.4
--- NOTE | 2021-11-03 08:00 | DI.ECHO.S_ITS ---
[place] +---------+ Hospital +---------+ : : [address] : [address] : : : : [id number] : : : : Phone: [phone]---------+ Echocardiogram Report + + :Name: DEQUAN ROBLERO Study Date: 11/03/2021 Height: 74 in : :[facility] ReadingLocation: Weight: 282 lb : : Gender: Male BSA: 2.5 m2 : :: 1960 Age: 61 yrs BP: 122/88 mmHg: :Reason For Study: SYNCOPE AND COLLAPSE : :Ordering Physician: MERI, : :NANDINI Performed By: Africa Otero : :Referring: NANDINI JEREZ : + + Interpretation Summary The ejection fraction is estimated to be 40-45%. Mid to distal infeior hypokinesis. There is mild global hypokinesis of the left ventricle. Right ventricular systolic function is mildly reduced. The right ventricle is mildly dilated. There is mild tricuspid regurgitation. The right ventricular systolic pressure is estimated to be at least 31 mmHg based on an estimated right atrial pressure of 3 mm Hg. Procedure: A two-dimensional transthoracic echocardiogram with color flow and Doppler was performed. The study quality was technically adequate. A contrast injection of Definity was performed to improve assessment of LV function. Comparison is made with the echocardiogram of 06/03/2020. The patient was in atrial fibrillation with heart rates between 86-113 bpm during the exam. Left Ventricle: The left ventricle is normal in size. Left ventricular wall thickness is at the upper limits of normal. The ejection fraction is estimated to be 40-45%. There has been no significant change since the previous exam. There is mild global hypokinesis of the left ventricle. Diastolic function could not be accurately assessed due to atrial fibrillation. Right Ventricle: The right ventricle is mildly dilated. Right ventricular systolic function is mildly reduced. Atria: The left atrium is mildly dilated. Right atrial size is normal. There is no Doppler evidence for an interatrial shunt. Mitral Valve: The mitral valve is normal in structure and function. There is mild mitral regurgitation. Aortic Valve: The aortic valve is trileaflet. The aortic valve opens well. There is no aortic valve stenosis. There is mild aortic regurgitation. Tricuspid Valve: The tricuspid valve is normal in structure and function. There is mild tricuspid regurgitation. The right ventricular systolic pressure is estimated to be at least 31 mmHg based on an estimated right atrial pressure of 3 mm Hg. Pulmonic Valve: The pulmonic valve leaflets are thin and pliable; valve motion is normal. There is no pulmonic valvular regurgitation. Great Vessels: The aortic root is normal size. The dimensions of the ascending aorta are normal. The IVC is of normal diameter and collapses greater than 50% with a sniff. This suggests a low right atrial pressure of 3 mm Hg. Pericardium/ Pleura There is no pericardial effusion. There is no pleural effusion. MMode/2D Measurements & Calculations LVIDd: 4.8 cm LVOT diam: 2.4 cm LVIDs: 3.5 cm Ao root diam: 3.4 cm FS: 27.3 % asc Aorta Diam: 3.8 cm IVSd: 0.91 cm Ao Arch Diam (Prox Trans): 3.0 cm LVPWd: 1.2 cm LV littlejohn. diameter/BSA (cm/m^2): 1.9 LV sys. diameter/BSA (cm/m^2): 1.4 LA A2 area: 26.9 cm2 RA long axis: 6.0 cm LA A4 area: 28.5 cm2 RA area: 25.5 cm2 LA length (vol): 6.3 cm RA vol: 92.3 ml LA vol: 102.9 ml RA : 36.7 ml/m2 LA vol index: 40.9 ml/m2 IVC diam: 1.9 cm RVD1 (basal): 4.7 cm TAPSE: 1.5 cm Doppler Measurements & Calculations Ao V2 max: 93.0 cm/sec LVOT Max Miah: 68.5 cm/sec Ao V2 mean: 66.8 cm/sec LV V1 max P.9 mmHg Ao max P.5 mmHg LV V1 VTI: 12.5 cm Ao mean P.0 mmHg CAMILA(I,D): 3.2 cm2 Ao V2 VTI: 17.9 cm CAMILA(V,D): 3.4 cm2 sev ratio: 0.70 CAMILA indexed to BSA (cm^2/m^2): 1.3 MV E max miah: 79.2 cm/sec TR max miah: 263.6 cm/sec MV A max miah: 1.2 cm/sec TR max P.8 mmHg MV E/A: 68.2 PA V2 max: 81.9 cm/sec Med Peak E' Miah: 8.5 cm/sec PA V2 mean: 54.9 cm/sec E/E' med: 9.3 PA mean P.4 mmHg Lat Peak E' Miah: 12.4 cm/sec PA pr(Accel): 37.9 mmHg E/E' lat: 6.4 E/e' average: 7.8 MV dec time: 0.18 sec SV(LVOT): 57.3 ml Reading Physician:10:30 AM
== END ==
PROVIDERS: PCP Physician Assistant; Referring Provider Physician Assistant; Visit Provider Physician Assistant
DX: R55 Syncope and collapse (principal); I08.3 Combined rheumatic disorders of mitral, aortic and tricuspid valves
CPT/HCPCS: 93306; Q9957

== ENCOUNTER → 2022-02-16 12:23 | Outpatient (CLI) | payer OTHER, SELFPAY ==
[2019-11-27 13:26] VITALS: BMI 40.4
[2022-02-16 13:37] LABS: Add Manual Diff / Slide Review NO; Basophils Absolute Auto 100 /uL (0-100); Basophils Percent Auto 0.8 % (0-2); Eosinophils Absolute Auto 200 /uL (0-450); Eosinophils Percent Auto 2.2 % (2-4); Hematocrit 45.5 % (41-53); Hemoglobin 15.5 g/dL (13.5-17.5); Lymphocytes Absolute Auto 1700 /uL (1100-4500); Lymphocytes Percent Auto 21.8 % (25-40); Mean Corpuscular HGB Conc 34.1 % (30-36); Mean Corpuscular Hemoglobin 29.6 PG (26-34); Mean Corpuscular Volume 86.9 fL (80-100); Monocytes Absolute Auto 500 /uL (0-900); Monocytes Percent Auto 6.7 % (3-14); Neutrophils Absolute Auto 5200 /uL (1500-7000); Neutrophils Percent Auto 68.5 % (50-75); Platelet Count 190 X10^3/uL (150-400); Red Blood Cell Count 5.24 X10^6/uL (4.5-5.9); Red Cell Distribution Width 13.3 % (11.6-14.8); White Blood Cell Count 7.6 X10^3/uL (4.5-11.0)
[2022-02-16 13:41] LABS: Hemoglobin A1C% w Est Avg Glu 6.2 % (4.0-6.0)
[2022-02-16 13:47] LABS: Alanine Aminotransferase 27 IU/L (<50); Albumin 4.6 g/dL (3.5-5.0); Albumin Globulin Ratio 1.4 (1.0-2.8); Alkaline Phosphatase 57 U/L (38-126); Aspartate Aminotransferase 32 IU/L (17-59); BUN Creatinine Ratio 29.5 (6-22); Bilirubin Total 0.8 mg/dL (0.2-1.3); Blood Urea Nitrogen 26 mg/dL (9-20); Calcium 9.4 mg/dL (8.4-10.2); Carbon Dioxide 29 mmol/L (22-32); Chloride 104 mmol/L (98-107); Estimated Glomerular Filt Rate > 60 mL/min (>60); Globulin 3.4 g/dL (1.7-4.1); Glucose 109 mg/dL (80-110); HEMOLYSIS 33 (0-50); Potassium 4.7 mmol/L (3.4-5.1); Sodium 139 mmol/L (137-145)
== END ==
PROVIDERS: PCP Physician Assistant; Referring Provider Physician Assistant; Visit Provider Physician Assistant
DX: E11.9 Type 2 diabetes mellitus without complications (principal)
CPT/HCPCS: 36415; 80053; 83036; 85025

== ENCOUNTER → 2022-02-20 13:00 | Outpatient (CLI) | payer OTHER, SELFPAY ==
[2019-11-27 13:26] VITALS: BMI 40.4
--- NOTE | 2022-02-20 | DI.RAD.S_ITS ---
PROCEDURE: XR SHOULDER RT MIN 2V INDICATIONS: Pain TECHNIQUE: 3 views of the shoulder were acquired. COMPARISON: None. FINDINGS: Bones: No fractures or dislocations. No suspicious bony lesions. Visualized ribs appear intact. AC joint space narrowing marginal osteophytes present. Glenohumeral joint space narrowing noted as well. No fracture. Soft tissues: No suspicious soft tissue calcifications. IMPRESSION: Glenohumeral and AC joint osteoarthritis Approved by: Sj Tee M.D. on 02/20/2022 at 16:20
--- NOTE | 2022-02-20 | DI.RAD.S_ITS ---
PROCEDURE: XR HAND RT MIN 3V INDICATIONS: Unspecified sprain of right little finger, initial encounter TECHNIQUE: 3 views of the hand acquired. COMPARISON: None. FINDINGS: Bones: No acute fractures or dislocations. Carpal bones are normally aligned. No suspicious bony lesions. Multifocal joint space narrowing is seen in the interphalangeal joints the fingers and at the 1st carpometacarpal joint. Soft tissues: No suspicious soft tissue calcifications. Soft tissue edema is seen in the small finger. IMPRESSION: No acute osseous abnormality. Mild soft tissue edema in the 5th finger. If the symptoms persist, consider cross sectional imaging such as MRI or CT for further assessment. Dictated by: Gabriel Alvares M.D. on 02/20/2022 at 17:04 Approved by: Gabriel Alvares M.D. on 02/20/2022 at 17:06
--- NOTE | 2022-02-20 | DI.RAD.S_ITS ---
PROCEDURE: XR KNEE RT 3V INDICATIONS: Unspecified sprain, initial encounter TECHNIQUE: 3 views of the knee were acquired. COMPARISON: None. FINDINGS: Bones: No fractures or dislocations. No suspicious bony lesions. Moderate medial patellofemoral compartment osteoarthritis. Mild lateral compartment osteoarthritis. Soft tissues: No joint effusion. No suspicious soft tissue calcifications. IMPRESSION: Right knee tricompartmental osteoarthritis. Dictated by: Kathryn Burton MD, PhD on 02/20/2022 at 15:14 Approved by: Kathryn Burton MD, PhD on 02/20/2022 at 15:16
--- NOTE | 2022-02-20 | DI.RAD.S_ITS ---
PROCEDURE: XR ELBOW RT MIN 3V INDICATIONS: Unspecified sprain of right little finger, initial encounter TECHNIQUE: 3 views of the elbow were acquired. COMPARISON: None. FINDINGS: Bones: No acute fractures or dislocations. No suspicious bony lesions. Small posterior olecranon enthesophyte. Soft tissues: No elbow joint effusion. No suspicious soft tissue calcifications. IMPRESSION: No acute osseous abnormality. Posterior olecranon enthesopathy. Dictated by: Gabriel Alvares M.D. on 02/20/2022 at 17:06 Approved by: Gabriel Alvares M.D. on 02/20/2022 at 17:07
== END ==
PROVIDERS: PCP Physician Assistant; Referring Provider Physician Assistant; Visit Provider Physician Assistant
DX: S83.91XA Sprain of unspecified site of right knee, initial encounter (principal); S63.616A Unspecified sprain of right little finger, initial encounter; S50.01XA Contusion of right elbow, initial encounter; S40.011A Contusion of right shoulder, initial encounter; M17.11 Unilateral primary osteoarthritis, right knee; M77.8 Other enthesopathies, not elsewhere classified; W19.XXXA Unspecified fall, initial encounter
CPT/HCPCS: 73030; 73080; 73130; 73562

== ENCOUNTER → 2022-03-15 09:40 | Outpatient (CLI) | payer OTHER, SELFPAY ==
[2019-11-27 13:26] VITALS: BMI 40.4
--- NOTE | 2022-03-15 | DI.RAD.S_ITS ---
PROCEDURE: XR FINGER RT MIN 2V INDICATIONS: RIGHT LITTLE FINGER PAIN TECHNIQUE: AP hand, 2 views of the 5th finger(s) acquired. COMPARISON: [facility], , XR HAND RT MIN 3V, 02/20/2022, 12:59. FINDINGS: Bones: No fractures or dislocations. No suspicious bony lesions. The interphalangeal joints have minimal joint space narrowing and small osteophytes consistent with osteoarthritis. There is a marginal erosion of the DIP joint of the little finger on the radial side. Soft tissues: No suspicious soft tissue calcifications. IMPRESSION: 1. No acute abnormality. 2. Mild joint space narrowing of the interphalangeal joints consistent with mild osteoarthritis. 3. An erosion of the DIP joint of the little finger is seen, consider inflammatory arthropathy. Dictated by: Woody Mcarthur M.D. on 03/15/2022 at 11:30 Approved by: Woody Mcarthur M.D. on 03/15/2022 at 11:33
== END ==
LOC: LAB 09:55 → RAD 10:12
PROVIDERS: PCP Physician Assistant; Referring Provider Physician Assistant; Visit Provider Physician Assistant
DX: S63.616A Unspecified sprain of right little finger, initial encounter (principal); M19.041 Primary osteoarthritis, right hand; X58.XXXA Exposure to other specified factors, initial encounter
CPT/HCPCS: 73140

== ENCOUNTER → 2022-07-27 16:37 | Outpatient (CLI) | payer OTHER, SELFPAY ==
[2019-11-27 13:26] VITALS: BMI 40.4
[2022-07-27 17:25] LABS: Add Manual Diff / Slide Review NO; Basophils Absolute Auto 0 /uL (0-100); Basophils Percent Auto 0.7 % (0-2); Eosinophils Absolute Auto 200 /uL (0-450); Eosinophils Percent Auto 2.4 % (2-4); Hematocrit 44.4 % (41-53); Hemoglobin 15.1 g/dL (13.5-17.5); Lymphocytes Absolute Auto 1900 /uL (1100-4500); Lymphocytes Percent Auto 27.1 % (25-40); Mean Corpuscular Hemoglobin 29.5 PG (26-34); Mean Corpuscular Volume 86.8 fL (80-100); Monocytes Absolute Auto 400 /uL (0-900); Monocytes Percent Auto 6.5 % (3-14); Neutrophils Absolute Auto 4300 /uL (1500-7000); Neutrophils Percent Auto 63.3 % (50-75); Platelet Count 167 X10^3/uL (150-400); Red Blood Cell Count 5.12 X10^6/uL (4.5-5.9); White Blood Cell Count 6.8 X10^3/uL (4.5-11.0)
[2022-07-27 17:30] LABS: Hemoglobin A1C% w Est Avg Glu 6.2 % (4.0-6.0)
[2022-07-27 17:36] LABS: Alanine Aminotransferase 23 IU/L (<50); Albumin 4.2 g/dL (3.5-5.0); Albumin Globulin Ratio 1.2 (1.0-2.8); Alkaline Phosphatase 71 U/L (38-126); Aspartate Aminotransferase 29 IU/L (17-59); BUN Creatinine Ratio 32.5 (6-22); Bilirubin Total 0.8 mg/dL (0.2-1.3); Blood Urea Nitrogen 27 mg/dL (9-20); Calcium 9.1 mg/dL (8.4-10.2); Carbon Dioxide 29 mmol/L (22-32); Chloride 102 mmol/L (98-107); Cholesterol 118 mg/dL (140-199); Estimated Glomerular Filt Rate > 60 mL/min (>60); Globulin 3.4 g/dL (1.7-4.1); Glucose 106 mg/dL (80-110); HDL Cholesterol 33 mg/dL (40-60); HEMOLYSIS < 15 (0-50); LDL Cholesterol Calculated 58 mg/dL (<100); Potassium 4.4 mmol/L (3.4-5.1); Sodium 142 mmol/L (137-145); Total Protein 7.6 g/dL (6.3-8.2); Triglycerides 133 mg/dL (35-150)
[2022-07-27 17:42] LABS: NT-proBNP (BNP-Adult 18+) 761 pg/mL (<125)
[2022-07-27 18:04] LABS: TSH w/ Reflex to FT4 4.28 uIU/mL (0.47-4.68)
[2022-07-27 18:16] LABS: Creatinine Urine Random 150.2 mg/dL
[2022-07-27 18:20] LABS: Microalbumi Creatinin Ratio Ur 3.9 ug/mg CR (<30); Microalbumin Urine Random 0.6 mg/dL (0-1.6)
== END ==
PROVIDERS: PCP Physician Assistant; Referring Provider Family Medicine; Visit Provider Family Medicine
DX: E78.5 Hyperlipidemia, unspecified (principal); E11.9 Type 2 diabetes mellitus without complications; E03.9 Hypothyroidism, unspecified; I48.91 Unspecified atrial fibrillation; I50.22 Chronic systolic (congestive) heart failure; I25.5 Ischemic cardiomyopathy; R60.9 Edema, unspecified
CPT/HCPCS: 36415; 80053; 80061; 82043; 82570; 83036; 83880; 84443; 85025

== ENCOUNTER → 2023-03-30 17:02 | Outpatient (CLI) | payer OTHER, SELFPAY ==
[2019-11-27 13:26] VITALS: BMI 40.4
--- NOTE | 2023-03-30 | DI.MRI.S_ITS ---
PROCEDURE: MR KNEE RT WO CON INDICATIONS: Pain in right knee, Righ shoulder pain TECHNIQUE: Noncontrast sagittal PD fast spin echo and T2 fast spin echo with fat saturation, sagittal 3-D FLASH with fat saturation; coronal T1 spin echo and PD fast spin echo with fat saturation, and axial PD fast spin echo with fat saturation through the knee. COMPARISON: None FINDINGS: Image quality: Excellent. Menisci: Medial extrusion of the medial meniscus is present. There is amorphous and linear horizontal high T2 signal intensity within the inner, middle, and peripheral thirds of the anterior horn, body, and posterior horn medial meniscus, demonstrating superior and inferior articular surface extension, indicating complex tearing. There is linear high T2 signal intensity traversing the middle and peripheral thirds of the anterior horn, body, and posterior horn lateral meniscus, without definite articular surface extension, suggestive of myxoid degeneration. Cruciate ligaments: The anterior and posterior cruciate ligaments appear intact. Medial structures: The medial collateral ligament appears intact. Visualized portions of the pes anserinus tendons appear normal. No abnormal bursal fluid. Lateral structures: The lateral collateral ligament, long and short heads of the biceps femoris tendon appear intact. The popliteus tendon appears normal. Iliotibial band appears normal. Anterior structures: The quadriceps and patellar tendons appear intact. Patellar alignment is normal. No femoral trochlear dysplasia or ventral trochlear prominence. No edema in the infrapatellar fat pad. Bones and cartilage: No bone marrow contusions or fractures. Mild subchondral degenerative marrow edema within the weight-bearing aspects of the medial femoral condyle and medial tibial plateau. Moderate tricompartmental periarticular osteophyte formation. Severe articular cartilage loss diffusely overlies the weight-bearing aspects of the medial femoral condyle and medial tibial plateau. Severe articular cartilage loss overlies the medial patellar facet inferiorly. Joint space: There is a moderate knee joint effusion. No Araya's cyst. Normal appearing synovial plicae are incidentally noted. IMPRESSION: 1. Tricompartmental osteoarthritis with associated articular cartilage loss. 2. Complex tearing of the medial meniscus. 3. Linear high signal intensity within the lateral meniscus, without definite articular surface extension, suggestive of myxoid degeneration. 4. Knee joint effusion. Dictated by: Rob Fierro M.D. on 04/03/2023 at 8:41 Approved by: Rob Fierro M.D. on 04/03/2023 at 8:44
--- NOTE | 2023-03-30 | DI.MRI.S_ITS ---
PROCEDURE: MR SHOULDER RT WO CON INDICATIONS: Pain in right knee, Righ shoulder pain TECHNIQUE: Noncontrast oblique coronal T2 fast spin echo with fat saturation, oblique sagittal T1 spin echo and T2 fast spin echo with fat saturation, axial T1 spin echo and T2 fast spin echo with fat saturation through the shoulder. COMPARISON: CR, XR SHOULDER RT MIN 2V, 02/20/2022, 12:59. FINDINGS: Image quality: Excellent. Rotator cuff: There is full-thickness tear of the supraspinatus tendon. There is tendon retraction and mild supraspinatus muscle atrophy. There is moderate tendinosis of the infraspinatus and subscapularis tendons. Partial thickness articular and bursal surface tear of the infraspinatus tendon is present. There is also partial thickness tear of the articular surface of the subscapularis tendon. No full thickness infraspinatus or subscapularis tendon tear. Bones and bursae: No bone marrow contusions or fractures. [id number] acromioclavicular joint degeneration and moderate glenohumeral joint degeneration. There is a 0.8 x 1.4 cm synovial cyst inferior to the distal right clavicle. The acromion demonstrates conventional anatomy, without an os acromiale. There is small glenohumeral joint effusion. Capsule and soft tissues: There is degenerative fraying of the superior and inferior labrum. Mild tendinosis of the long head of the biceps tendon which demonstrates normal location. The rotator interval appears normal, without fibrosis. The coracohumeral ligament is normal in thickness. IMPRESSION: 1. Full-thickness tear of the supraspinatus tendon with tendon retraction and mild supraspinatus muscle atrophy. 2. Partial-thickness tear of the infraspinatus and subscapularis tendons with moderate tendinosis. 3. Mild tendinosis of the long head of the biceps tendon. 4. [id number] acromioclavicular joint degeneration and moderate glenohumeral joint degeneration. 5. Small glenohumeral joint effusion. 6. A 0.8 x 1.4 cm synovial cyst underneath the distal clavicle. Dictated by: Jerry Michelle M.D. on 04/03/2023 at 12:28 Approved by: Jerry Michelle M.D. on 04/03/2023 at 12:39
== END ==
PROVIDERS: PCP Physician Assistant; Referring Provider Nurse Practitioner Family; Visit Provider Nurse Practitioner Family
DX: M25.561 Pain in right knee (principal); M25.511 Pain in right shoulder; M75.121 Complete rotator cuff tear or rupture of right shoulder, not specified as traumatic; M62.511 Muscle wasting and atrophy, not elsewhere classified, right shoulder; S46.811A Strain of other muscles, fascia and tendons at shoulder and upper arm level, right arm, initial encounter; M25.411 Effusion, right shoulder; M71.311 Other bursal cyst, right shoulder; M17.11 Unilateral primary osteoarthritis, right knee; S83.241A Other tear of medial meniscus, current injury, right knee, initial encounter; M25.461 Effusion, right knee
CPT/HCPCS: 73221; 73721

== ENCOUNTER → 2023-04-25 15:31 | Outpatient (CLI) | payer OTHER, SELFPAY ==
[2019-11-27 13:26] VITALS: BMI 40.4
--- NOTE | 2023-04-25 15:32 | DI.RAD.S_ITS ---
PROCEDURE: XR CHEST 2V INDICATIONS: cough 1.5 weeks, chest congestion, chills TECHNIQUE: 2 views of the chest were acquired. COMPARISON: [facility], CR, XR CHEST 1V, 11/27/2019, 11:19. FINDINGS: Surgical changes and devices: None. Lungs and pleura: Lungs are clear. No pleural effusions or pneumothorax. Mediastinum: Mediastinal contours are normal. Heart size is normal. Bones and chest wall: No suspicious bony abnormalities. Soft tissues appear unremarkable. IMPRESSION: No acute cardiopulmonary abnormalities or focal airspace disease. Dictated by: Zachary Pederson M.D. on 04/25/2023 at 16:26 Approved by: Zachary Pederson M.D. on 04/25/2023 at 16:26
== END ==
PROVIDERS: PCP Nurse Practitioner Family; Referring Provider Student in an Organized Health Care Education/Training Program; Visit Provider Student in an Organized Health Care Education/Training Program
DX: R05.9 Cough, unspecified (principal); R09.89 Other specified symptoms and signs involving the circulatory and respiratory systems
CPT/HCPCS: 71046

== ENCOUNTER → 2023-07-13 08:41 | Outpatient (CLI) | payer MEDICARE, OTHER, SELFPAY ==
[2019-11-27 13:26] VITALS: BMI 40.4
[2023-07-13 10:46] LABS: Cholesterol 130 mg/dL (140-199); HDL Cholesterol 39 mg/dL (40-60); LDL Cholesterol Calculated 73 mg/dL (<100); Triglycerides 92 mg/dL (35-150)
== END ==
PROVIDERS: PCP Nurse Practitioner Family; Referring Provider Internal Medicine Cardiovascular Disease; Visit Provider Internal Medicine Cardiovascular Disease
DX: I25.10 Atherosclerotic heart disease of native coronary artery without angina pectoris (principal); I48.91 Unspecified atrial fibrillation
CPT/HCPCS: 36415; 80061

== ENCOUNTER → 2023-07-25 11:31 | Outpatient (CLI) | payer MEDICARE, OTHER, SELFPAY ==
[2019-11-27 13:26] VITALS: BMI 40.4
[2023-07-25 13:07] LABS: Alanine Aminotransferase 36 IU/L (<50); Albumin 4.2 g/dL (3.5-5.0); Albumin Globulin Ratio 1.3 (1.0-2.8); Alkaline Phosphatase 70 U/L (38-126); Aspartate Aminotransferase 29 IU/L (17-59); Blood Urea Nitrogen 17 mg/dL (9-20); Calcium 9.5 mg/dL (8.4-10.2); Carbon Dioxide 27 mmol/L (22-32); Chloride 103 mmol/L (98-107); Estimated Glomerular Filt Rate > 60 mL/min (>60); Globulin 3.3 g/dL (1.7-4.1); Glucose 158 mg/dL (80-110); HEMOLYSIS < 15 (0-50); Potassium 4.1 mmol/L (3.4-5.1); Sodium 138 mmol/L (137-145); Total Protein 7.5 g/dL (6.3-8.2)
[2023-07-25 13:38] LABS: TSH w/ Reflex to FT4 3.56 uIU/mL (0.47-4.68)
== END ==
PROVIDERS: PCP Nurse Practitioner Family; Referring Provider Nurse Practitioner Family; Visit Provider Nurse Practitioner Family
DX: E03.9 Hypothyroidism, unspecified (principal); Z13.1 Encounter for screening for diabetes mellitus
CPT/HCPCS: 36415; 80053; 84443

== ENCOUNTER → 2023-09-05 07:58 | Outpatient (CLI) | payer MEDICARE, OTHER, SELFPAY ==
[2019-11-27 13:26] VITALS: BMI 40.4
[2023-09-05 08:34] LABS: Hemoglobin A1C% w Est Avg Glu 6.6 % (4.0-6.0)
[2023-09-05 15:37] LABS: Creatinine Urine Random 175.6 mg/dL
[2023-09-05 15:40] LABS: Microalbumi Creatinin Ratio Ur 5.1 ug/mg CR (<30); Microalbumin Urine Random 0.9 mg/dL (0-1.6)
== END ==
PROVIDERS: PCP Nurse Practitioner Family; Referring Provider Nurse Practitioner Family; Visit Provider Nurse Practitioner Family
DX: E11.65 Type 2 diabetes mellitus with hyperglycemia (principal)
CPT/HCPCS: 36415; 82043; 82570; 83036

== ENCOUNTER → 2023-12-13 16:41 | Outpatient (CLI) | payer MEDICARE, OTHER, SELFPAY ==
[2019-11-27 13:26] VITALS: BMI 40.4
[2023-12-13 18:26] LABS: Hemoglobin A1C% w Est Avg Glu 6.3 % (4.0-6.0)
[2023-12-13 18:39] LABS: Alanine Aminotransferase 31 IU/L (<50); Albumin 4.2 g/dL (3.5-5.0); Albumin Globulin Ratio 1.2 (1.0-2.8); Alkaline Phosphatase 72 U/L (38-126); Aspartate Aminotransferase 28 IU/L (17-59); BUN Creatinine Ratio 24.4 (6-22); Bilirubin Total 0.8 mg/dL (0.2-1.3); Blood Urea Nitrogen 19 mg/dL (9-20); Carbon Dioxide 27 mmol/L (22-32); Chloride 104 mmol/L (98-107); Estimated Glomerular Filt Rate > 60 mL/min (>60); Globulin 3.4 g/dL (1.7-4.1); Glucose 126 mg/dL (80-110); HEMOLYSIS < 15 (0-50); Potassium 4.6 mmol/L (3.4-5.1); Sodium 138 mmol/L (137-145); Total Protein 7.6 g/dL (6.3-8.2)
== END ==
LOC: LAB 16:45
PROVIDERS: PCP Nurse Practitioner Family; Referring Provider Nurse Practitioner Family; Visit Provider Nurse Practitioner Family
DX: E11.9 Type 2 diabetes mellitus without complications (principal); E78.5 Hyperlipidemia, unspecified; I10 Essential (primary) hypertension
CPT/HCPCS: 36415; 80053; 83036

== ENCOUNTER → 2024-04-14 10:13 | Outpatient (CLI) | payer MEDICARE, OTHER, SELFPAY ==
[2019-11-27 13:26] VITALS: BMI 40.4
[2024-04-14 11:16] LABS: Hemoglobin A1C% w Est Avg Glu 6.4 % (4.0-6.0)
[2024-04-14 11:29] LABS: Alanine Aminotransferase 23 IU/L (<50); Albumin Globulin Ratio 1.6 (1.0-2.8); Alkaline Phosphatase 82 U/L (38-126); Aspartate Aminotransferase 26 IU/L (17-59); BUN Creatinine Ratio 31.3 (6-22); Bilirubin Total 0.9 mg/dL (0.2-1.3); Blood Urea Nitrogen 25 mg/dL (9-20); Calcium 8.9 mg/dL (8.4-10.2); Carbon Dioxide 29 mmol/L (22-32); Chloride 107 mmol/L (98-107); Estimated Glomerular Filt Rate > 60 mL/min (>60); Globulin 2.5 g/dL (1.7-4.1); Glucose 161 mg/dL (80-110); HEMOLYSIS < 15 (0-50); Potassium 4.7 mmol/L (3.4-5.1); Sodium 140 mmol/L (137-145); Total Protein 6.5 g/dL (6.3-8.2)
[2024-04-14 12:00] LABS: TSH w/ Reflex to FT4 2.95 uIU/mL (0.47-4.68)
== END ==
LOC: LAB 10:14
PROVIDERS: PCP Nurse Practitioner Family; Referring Provider Nurse Practitioner Family; Visit Provider Nurse Practitioner Family
DX: E03.9 Hypothyroidism, unspecified (principal); E11.65 Type 2 diabetes mellitus with hyperglycemia
CPT/HCPCS: 36415; 80053; 83036; 84443

== ENCOUNTER → 2024-08-04 11:23 | Outpatient (CLI) | payer MEDICARE, OTHER, SELFPAY ==
[2019-11-27 13:26] VITALS: BMI 40.4
[2024-08-04 13:32] LABS: Alanine Aminotransferase 21 IU/L (<50); Albumin Globulin Ratio 1.4 (1.0-2.8); Alkaline Phosphatase 77 U/L (38-126); Aspartate Aminotransferase 27 IU/L (17-59); BUN Creatinine Ratio 30.4 (6-22); Blood Urea Nitrogen 24 mg/dL (9-20); Calcium 9.3 mg/dL (8.4-10.2); Carbon Dioxide 26 mmol/L (22-32); Chloride 105 mmol/L (98-107); Estimated Glomerular Filt Rate > 60 mL/min (>60); Globulin 2.8 g/dL (1.7-4.1); Glucose 144 mg/dL (80-110); HEMOLYSIS 21 (0-50); Potassium 4.4 mmol/L (3.4-5.1); Sodium 137 mmol/L (137-145); Total Protein 6.8 g/dL (6.3-8.2)
[2024-08-04 14:02] LABS: TSH w/ Reflex to FT4 3.28 uIU/mL (0.47-4.68)
== END ==
PROVIDERS: PCP Nurse Practitioner Family; Referring Provider Nurse Practitioner Acute Care; Visit Provider Nurse Practitioner Acute Care
DX: E03.9 Hypothyroidism, unspecified (principal); I25.10 Atherosclerotic heart disease of native coronary artery without angina pectoris
CPT/HCPCS: 36415; 80053; 84443